=== PATIENT | female | born 1990 | race Caucasian/White ===

== ENCOUNTER 2019-01-22 19:51 | Inpatient (IN) | payer OTHER ==
[2019-01-22] MEDS ORDERED: Sodium Chloride 0.9% 10 ML Syringe FLUSH PRN (19:56)
[2019-01-22] MEDS ORDERED: Acetaminophen 325 MG Tab PO PRN (19:56)
[2019-01-22] MEDS ORDERED: Lactated Ringers 500 ML IV ONE (19:56)
[2019-01-22] MEDS ORDERED: Methylergonovine 0.2 MG/1 ML Amp IM PRN (19:56)
[2019-01-22] MEDS ORDERED: Misoprostol 400 MCG (4 X 100 MCG TAB) RECTAL PRN (19:56)
[2019-01-22] MEDS ORDERED: Carboprost Tromethamine 250 MCG/1 ML Amp IM PRN (19:56)
[2019-01-22] MEDS ORDERED: Tranexamic Acid 1,000 MG in Sodium Chloride 0.9% 100 ML IV PRN (19:56)
[2019-01-22] MEDS ORDERED: Lidocaine 1% 30 ML SDV INJECT PRN (19:56)
[2019-01-22] MEDS ORDERED: Oxytocin/Normal Saline 30 UNIT/500 ML BAG IV SCH (20:00)
[2019-01-22] MEDS: Lactated Ringers 1,000 ML IV SCH ×3 (20:15→22:58)
--- NOTE | 2019-01-22 20:17 | PCM.LDHP ---
<Lalita Jacome - Last Filed: 01/22/19 20:08> L&D History of Present Illness - General Date of Service: 01/22/19 Admit Problem/Dx: Patient Status Order with Admit Dx/Problem 01/22/19 19:56 Patient Status [ADT] Routine Admission Diagnosis/Problem Admission Diagnosis/Problem Rupture of membranes with clear amniotic fluid - History of Present Illness Introduction:: Nedra is a 28 yo female at 40w2d who presents to L&D for leakage of fluid. She had a large gush of fluid around 1915 this evening. She had been silvia for about an hour prior to that. They are now uncomfortable and about 5-10 minutes apart. Denies vaginal bleeding. Lost her mucus plug earlier today. She has been having headaches recently. She has had quite a bit of swelling recently as well. Baby is active. Expecting a boy. Desires intrathecal. - Related Data Allergies/Adverse Reactions: Allergies Allergy/AdvReac Type Severity Reaction Status Date / Time Penicillins Allergy Cannot Verified 01/22/19 20:04 Remember H&P Review of Systems - Review of Systems: Review Of Systems: See Below Review of Systems Comment:: ROS performed and negative except per HPI. L&D Exam - Exam Exam: See Below - Vital Signs Vital Signs: BP 153/76, P 80, remainder vitals pending. Weight: 92.986 kg - OB Specific Heart Tones: Present Heart Tones per Min: 125 (moderate variability, prolonged accels, no decels) - Exam General: Alert, Oriented Neck: Supple Lungs: Clear to Auscultation, Normal Respiratory Effort Cardiovascular: Regular Rate, Regular Rhythm, Normal S1, Normal S2 GI/Abdominal Exam: Normal Bowel Sounds, Soft, Non-Tender Genitourinary: Normal external exam, Cervical dilitation (4/90/-2) Extremities: Non-Tender, Pedal Edema (3+) Skin: Warm, Intact Psychiatric: Alert, Normal Mood - Problem List (1) SROM (spontaneous rupture of membranes) SNOMED Code(s): 609731580 ICD Code: FLP5090 - Status: Acute Current Visit: Yes (2) Normal labor SNOMED Code(s): 57738612 ICD Code: O80 - ENCOUNTER FOR FULL-TERM UNCOMPLICATED DELIVERY; Z37.9 - OUTCOME OF DELIVERY, UNSPECIFIED Status: Acute Current Visit: Yes (3) Elevated blood pressure affecting , antepartum SNOMED Code(s): 90411313, 831358903 ICD Code: O16.9 - UNSPECIFIED MATERNAL HYPERTENSION, UNSPECIFIED TRIMESTER Status: Acute Current Visit: Yes Problem List Initiated/Reviewed/Updated: Yes Orders Last 24hrs: Active Orders 24 hr Category Date Time Status Patient Status [ADT] Routine ADT 01/22/19 19:56 Ordered Communication Order [RC] ASDIRECTED Care 01/22/19 19:56 Ordered Heart Tones [RC] PER UNIT ROUTINE Care 01/22/19 19:56 Ordered Notify Provider Vital Signs OB [RC] ASDIRECTED Care 01/22/19 19:56 Ordered Notify Provider [RC] PRN Care 01/22/19 19:56 Ordered Pump Management, Intrathecal [RC] ASDIRECTED Care 01/22/19 19:58 Ordered Up ad Mitali [RC] ASDIRECTED Care 01/22/19 19:56 Ordered Vital Signs [RC] PER UNIT ROUTINE Care 01/22/19 19:56 Ordered CBC W/O DIFF,HEMOGRAM [HEME] Routine Lab 01/22/19 19:56 Ordered Acetaminophen [Tylenol] Med 01/22/19 19:56 Ordered 650 mg PO Q4H PRN Carboprost Tromethamine [Hemabate DS] Med 01/22/19 19:56 Ordered 250 mcg IM ASDIRECTED PRN Lactated Ringers @ 125 MLS/HR(1000ml) Med 01/22/19 20:00 Ordered Lactated Ringers [Ringers, Lactated] 1,000 ml IV ASDIRECTED Lactated Ringers [Ringers, Lactated] 500 ml Med 01/22/19 19:56 Ordered IV .BOLUS Lidocaine 1% [Xylocaine-MPF 1%] Med 01/22/19 19:56 Ordered 30 ml INJECT ASDIRECTED PRN Methylergonovine [Methergine] Med 01/22/19 19:56 Ordered 0.2 mg IM ASDIRECTED PRN Ondansetron [Zofran] Med 01/22/19 19:56 Ordered 4 mg IV Q4H PRN Oxytocin 30 Units in NS @ 2 MUNITS/MIN(500ml) Med 01/22/19 20:00 Ordered Oxytocin/Normal Saline [Pitocin in NS 30 UNIT/500 ML] 30 unit in 500 ml IV TITRATE Sodium Chloride 0.9% [Saline Flush] Med 01/22/19 19:56 Ordered 10 ml FLUSH ASDIRECTED PRN Tranexamic Acid [Cyklokapron] 1,000 mg Med 01/22/19 19:56 Ordered Sodium Chloride 0.9% [Normal Saline] 100 ml IV ONETIME miSOPROStol [Cytotec] Med 01/22/19 19:56 Ordered 800 mcg RECTAL ASDIRECTED PRN Saline Lock Insert [OM.PC] Routine Oth 01/22/19 19:56 Ordered Resuscitation Status Routine Resus Stat 01/22/19 19:56 Ordered Medication Orders Acetaminophen (Tylenol) 650 mg PO Q4H PRN PRN Reason: Pain (Mild 1-3) and fever Carboprost Tromethamine (Hemabate Ds) 250 mcg IM ASDIRECTED PRN PRN Reason: HEMORRHAGE Lactated Ringer's (Ringers, Lactated) 500 mls @ 999 mls/hr IV .BOLUS ONE Stop: 01/22/19 20:26 Lactated Ringer's (Ringers, Lactated) 1,000 mls @ 125 mls/hr IV ASDIRECTED CRISTY Oxytocin/Sodium Chloride (Pitocin In Ns 30 Unit/500 Ml) 30 unit in 500 mls @ 2 mls/hr IV TITRATE CRISTY; Protocol Tranexamic Acid 1,000 mg/ (Sodium Chloride) 110 mls @ 660 mls/hr IV ONETIME PRN PRN Reason: Bleeding Lidocaine HCl (Xylocaine-Mpf 1%) 30 ml INJECT ASDIRECTED PRN PRN Reason: Perineal Repair Methylergonovine Maleate (Methergine) 0.2 mg IM ASDIRECTED PRN PRN Reason: Hemorrhage Misoprostol (Cytotec) 800 mcg RECTAL ASDIRECTED PRN PRN Reason: Hemorrhage Ondansetron HCl (Zofran) 4 mg IV Q4H PRN PRN Reason: Nausea/Vomiting Sodium Chloride (Saline Flush) 10 ml FLUSH ASDIRECTED PRN PRN Reason: Keep Vein Open Assessment/Plan Comment:: Nedra is a 28 yo with normal labor and SROM. Elevated blood pressure on admission. Admit to L&D. Expectant management Intrathecal as desired. Pre-E labs drawn Anticipate vaginal delivery. Staffed with Dr. Wells. Lalita Jacome PGY3 <Josselin Wells - Last Filed: 01/23/19 03:43> L&D History of Present Illness - General Admit Problem/Dx: Patient Status Order with Admit Dx/Problem 01/22/19 19:56 Patient Status [ADT] Routine Admission Diagnosis/Problem Admission Diagnosis/Problem Rupture of membranes with clear amniotic fluid L&D Exam - Vital Signs Vital Signs: Last Vital Signs Temp 37.4 C 01/22/19 23:49 Pulse 67 01/23/19 02:33 Resp 16 01/23/19 02:33 BP 136/82 01/23/19 02:33 Pulse Ox 100 01/23/19 02:01 - Patient Data Lab Results Last 24 hrs: Laboratory Results - last 24 hr 01/22/19 01/22/19 01/22/19 Range/Units 20:15 20:15 21:55 WBC 16.1 H (5.0-10.0) 10^3/uL RBC 4.16 L (4.2-5.4) 10^6/uL Hgb 13.1 (12.0-16.0) g/dL Hct 38.6 (37.0-47.0) % MCV 92.8 (80-100) fL MCH 31.5 (27.0-34.0) pg MCHC 33.9 (33.0-35.0) g/dL Plt Count 240 (150-450) 10^3/uL BUN 18 (7-18) mg/dL Creatinine 0.9 (0.6-1.3) mg/dL Est Cr Clr Drug Dosing 84.49 mL/min Estimated GFR (MDRD) > 60 Uric Acid 8.0 H (2.6-7.2) mg/dL AST 26 (10-42) IU/L ALT 14 (10-60) IU/L Lactate Dehydrogenase 153 (91-180) IU/L Urine Color Yellow (YELLOW) Urine Appearance Cloudy (CLEAR) Urine pH 6.0 (5.0-9.0) Ur Specific [place] 1.020 (1.005-1.030) Urine Protein Negative (NEGATIVE) Urine Glucose (UA) Negative (NEGATIVE) Urine Ketones Negative (NEGATIVE) Urine Occult Blood Large H (NEGATIVE) Urine Nitrite Negative (NEGATIVE) Urine Bilirubin Negative (NEGATIVE) Urine Urobilinogen 0.2 (0.2-1.0) mg/dL Ur Leukocyte Esterase Negative (NEGATIVE) Ur Random Creatinine mg/dL U Random Total Protein (0.00-9.9) mg/dL Protein/Creatinin Ratio 01/22/19 Range/Units 21:55 WBC (5.0-10.0) 10^3/uL RBC (4.2-5.4) 10^6/uL Hgb (12.0-16.0) g/dL Hct (37.0-47.0) % MCV (80-100) fL MCH (27.0-34.0) pg MCHC (33.0-35.0) g/dL Plt Count (150-450) 10^3/uL BUN (7-18) mg/dL Creatinine (0.6-1.3) mg/dL Est Cr Clr Drug Dosing mL/min Estimated GFR (MDRD) Uric Acid (2.6-7.2) mg/dL AST (10-42) IU/L ALT (10-60) IU/L Lactate Dehydrogenase (91-180) IU/L Urine Color (YELLOW) Urine Appearance (CLEAR) Urine pH (5.0-9.0) Ur Specific [place] (1.005-1.030) Urine Protein (NEGATIVE) Urine Glucose (UA) (NEGATIVE) Urine Ketones (NEGATIVE) Urine Occult Blood (NEGATIVE) Urine Nitrite (NEGATIVE) Urine Bilirubin (NEGATIVE) Urine Urobilinogen (0.2-1.0) mg/dL Ur Leukocyte Esterase (NEGATIVE) Ur Random Creatinine 112 mg/dL U Random Total Protein 24 H (0.00-9.9) mg/dL Protein/Creatinin Ratio 0.21 Result Diagrams: 01/22/19 20:15 01/22/19 20:15 Orders Last 24hrs: Active Orders 24 hr Category Date Time Status Patient Status [ADT] Routine ADT 01/22/19 19:56 Active Communication Order [RC] ASDIRECTED Care 01/22/19 19:56 Active Non Stress Test [RC] PER UNIT ROUTINE Care 01/23/19 03:21 Active Notify Provider Vital Signs OB [RC] ASDIRECTED Care 01/22/19 19:56 Active Notify Provider [RC] PRN Care 01/22/19 19:56 Active POC Labs [RC] ASDIRECTED Care 01/23/19 03:21 Active Procedure Site Prep Instruct [RC] ASDIRECTED Care 01/23/19 03:21 Active Pump Management, Intrathecal [RC] ASDIRECTED Care 01/22/19 19:58 Active RT Incentive Spirometry [RC] ASDIRECTED Care 01/23/19 03:21 Active Up ad Mitali [RC] ASDIRECTED Care 01/22/19 19:56 Active Vital Signs [RC] 08,20 Care 01/22/19 19:56 Active Vital Signs [RC] PER UNIT ROUTINE Care 01/23/19 03:21 Active Nothing Per Oral Diet [DIET] Diet 01/23/19 Breakfast Active Nothing Per Oral Diet [DIET] Diet 01/23/19 Dinner Active Nothing Per Oral Diet [DIET] Diet 01/23/19 Lunch Active TYPE AND SCREEN [BBK] Routine Lab 01/23/19 03:21 Received Acetaminophen [Tylenol] Med 01/22/19 19:56 Active 650 mg PO Q4H PRN Carboprost Tromethamine [Hemabate DS] Med 01/22/19 19:56 Active 250 mcg IM ASDIRECTED PRN Lactated Ringers [Ringers, Lactated] 1,000 ml Med 01/22/19 20:00 Active IV ASDIRECTED Lidocaine 1% [Xylocaine-MPF 1%] Med 01/22/19 19:56 Active 30 ml INJECT ASDIRECTED PRN Methylergonovine [Methergine] Med 01/22/19 19:56 Active 0.2 mg IM ASDIRECTED PRN Ondansetron [Zofran] Med 01/22/19 19:56 Active 4 mg IV Q4H PRN Oxytocin/Normal Saline [Pitocin in NS 30 UNIT/500 ML] Med 01/22/19 20:00 Active 30 unit in 500 ml IV TITRATE Oxytocin/Normal Saline [Pitocin in NS 30 UNIT/500 ML] Med 01/23/19 01:55 Active 30 unit in 500 ml IV TITRATE Sodium Chloride 0.9% [Saline Flush] Med 01/22/19 19:56 Active 10 ml FLUSH ASDIRECTED PRN Tranexamic Acid [Cyklokapron] 1,000 mg Med 01/22/19 19:56 Active Sodium Chloride 0.9% [Normal Saline] 100 ml IV ONETIME ceFAZolin [Ancef] 2 gm Med 01/23/19 03:20 Active Premix Bag 1 bag IV ONETIME miSOPROStol [Cytotec] Med 01/22/19 19:56 Active 800 mcg RECTAL ASDIRECTED PRN Saline Lock Insert [OM.PC] Routine Oth 01/22/19 19:56 Ordered Schedule Procedure [COMM] Per Unit Routine Oth 01/23/19 03:21 Ordered Resuscitation Status Routine Resus Stat 01/22/19 19:56 Ordered Medication Orders Acetaminophen (Tylenol) 650 mg PO Q4H PRN PRN Reason: Pain (Mild 1-3) and fever Carboprost Tromethamine (Hemabate Ds) 250 mcg IM ASDIRECTED PRN PRN Reason: HEMORRHAGE Lactated Ringer's (Ringers, Lactated) 1,000 mls @ 125 mls/hr IV ASDIRECTED CRISTY Last Admin: 01/23/19 01:15 Dose: 125 mls/hr Infusion: 01/23/19 00:09 Dose: 125 mls/hr Admin: 01/22/19 22:58 Dose: 125 mls/hr Infusion: 01/22/19 22:58 Dose: 125 mls/hr Admin: 01/22/19 21:00 Dose: 125 mls/hr Infusion: 01/22/19 21:00 Dose: 125 mls/hr Admin: 01/22/19 20:15 Dose: 125 mls/hr Oxytocin/Sodium Chloride (Pitocin In Ns 30 Unit/500 Ml) 30 unit in 500 mls @ 2 mls/hr IV TITRATE CRISTY; Protocol Last Titration: 01/23/19 02:49 Dose: 4 mls/hr Titration: 01/23/19 02:32 Dose: 3 mls/hr Titration: 01/23/19 02:15 Dose: 2 mls/hr Admin: 01/23/19 01:54 Dose: 1 munits/min, 1 mls/hr Tranexamic Acid 1,000 mg/ (Sodium Chloride) 110 mls @ 660 mls/hr IV ONETIME PRN PRN Reason: Bleeding Oxytocin/Sodium Chloride (Pitocin In Ns 30 Unit/500 Ml) 30 unit in 500 mls @ 2 mls/hr IV TITRATE CRISTY; Protocol Cefazolin Sodium/Dextrose 2 gm (/ Premix) 50 mls @ 100 mls/hr IV ONETIME ONE Stop: 01/23/19 03:49 Lidocaine HCl (Xylocaine-Mpf 1%) 30 ml INJECT ASDIRECTED PRN PRN Reason: Perineal Repair Methylergonovine Maleate (Methergine) 0.2 mg IM ASDIRECTED PRN PRN Reason: Hemorrhage Misoprostol (Cytotec) 800 mcg RECTAL ASDIRECTED PRN PRN Reason: Hemorrhage Ondansetron HCl (Zofran) 4 mg IV Q4H PRN PRN Reason: Nausea/Vomiting Last Admin: 01/23/19 00:20 Dose: 4 mg Admin: 01/22/19 20:28 Dose: 4 mg Sodium Chloride (Saline Flush) 10 ml FLUSH ASDIRECTED PRN PRN Reason: Keep Vein Open Last Admin: 01/22/19 20:35 Dose: 10 ml Assessment/Plan Comment:: Agree with resident assessment and plan. Labs and BP are consistent with mild preeclampsia. Will monitor closely. If BP >160/100, will start magnesium. Josselin Wells MD
[2019-01-22] MEDS: Ondansetron 4 MG/2 ML SDV IV PRN (20:28)
[2019-01-22] MEDS ORDERED: fentaNYL 100 MCG/2 ML SDV ONE (20:34)
[2019-01-22] MEDS ORDERED: EPINEPHrine 1 MG/ML SDV ONE (20:35)
[2019-01-22] MEDS ORDERED: Sodium Bicarbonate 4.2% 2.5 MEQ/5 ML SDV ONE (20:35)
--- NOTE | 2019-01-22 21:02 | PCM.SN ---
- Free Text/Narrative Note: Intrathecal. Sitting position, sterile prep and drape. 1% lidocaine w bicarb for skinwheal to L2 L3 interspace, introducer, 24 ga pencan x 1. Pos CSF, neg heme, neg parasthesia. 0.1 ml pf 1:1000 epi, 20 mcg pf sufenta, 30 mcg pf fentanyl, 0.4 ml pf ns and 6 mg of 0.75 % pf bupivacaine injected after CSF aspiration. Pt to L lateral position. Procedure time 2039 to 2009
[2019-01-23] MEDS: Ondansetron 4 MG/2 ML SDV IV PRN (00:20)
[2019-01-23] MEDS ORDERED: EPINEPHrine 1 MG/ML SDV ONE (00:28)
[2019-01-23] MEDS ORDERED: fentaNYL 100 MCG/2 ML SDV ONE (00:28)
[2019-01-23] MEDS ORDERED: Sodium Bicarbonate 4.2% 2.5 MEQ/5 ML SDV ONE (00:29)
--- NOTE | 2019-01-23 00:49 | PCM.SN ---
- Free Text/Narrative Note: Intrathecal. Sitting position, sterile prep and drape. 1% lidocaine w bicarb for skinwheal to L2 L3 interspace, introducer, 24 ga pencan x 1. Pos CSF, neg heme, neg parasthesia. 0.1 ml pf 1:1000 epi, 20 mcg pf sufenta, 30 mcg pf fentanyl, 0.4 ml pf ns and 6 mg of 0.75 % pf bupivacaine injected after CSF aspiration. Pt to L lateral position. Procedure time 0030 to 0100
--- NOTE | 2019-01-23 00:57 | PCM.SN ---
- Free Text/Narrative Note: Labor progress note 01/23/2019 0051 More comfortable with second intrathecal. Denies headache. BP 140/73, P73, O2 100%, NAD FHT category 1 Last cervical check about 40 min ago was 8/100/0 Urine PcR 0.21 UA with large amt blood. A/P 28 yo at 40 3/7 weeks in active labor. Pre-ecclampsia without severe features. Continue current cares. Anticipate vaginal delivery. Lalita Jacome, PGY3
[2019-01-23] MEDS: Lactated Ringers 1,000 ML IV SCH (01:15)
[2019-01-23] MEDS ORDERED: Oxytocin/Normal Saline 30 UNIT/500 ML BAG IV SCH ×3 (01:55→02:00)
--- NOTE | 2019-01-23 02:20 | PCM.SN ---
- Free Text/Narrative Note: Labor progress note 01/23/2019 0211 Still comfortable with second intrathecal. A little nauseous. No other concerns. BP 140/83, P63, O2 100% Cervix 8/100/0, unchanged from 2 hours prior. FHT category 1 28 yo in normal labor with SROM. Pre-ecclampsia. Start pitocin now Continue other cares. Anticipate vaginal delivery. Lalita Jacome, PGY3
[2019-01-23] MEDS ORDERED: ceFAZolin 2 GM in Premix Bag 1 BAG IV ONE (03:20)
[2019-01-23] MEDS ORDERED: Citric Acid/Sodium Citrate Solution 30 ML Cup PO ONE (03:20)
[2019-01-23] MEDS ORDERED: Oxytocin/Normal Saline 60 UNIT/1,000 ML BAG ONE (03:29)
--- NOTE | 2019-01-23 03:41 | PCM.SN ---
- Free Text/Narrative Note: 01/23/19 Called to L&D after FHT decreased into the 80s-90s for 9 minutes. Cervix has been 8 cm since midnight despite adequate contractions. Upon my arrival, FHT had recovered to 130s with minimal variability. Due to intolerance of labor and prolonged 1st stage of labor, the decision was made to proceed with section. Risks of procedure were reviewed with the patient, and consent was signed. Will attempt spinal anesthesia. Josselin Wells MD
[2019-01-23] MEDS ORDERED: Sodium Chloride 0.9% 50 ML ONE (04:31)
--- NOTE | 2019-01-23 05:06 | PCM.DEL ---
<Lalita Jacome - Last Filed: 01/23/19 05:32> L & D Note - General Info Date of Service: 01/23/19 - Delivery Note Labor: Spontaneous Delivery Method: Emergent Delivery Mode: Manual Presentation: Vertex Nuchal Cord: None Anesthesia Type: Spinal Amniotic Fluid Description: Meconium Stained Episiotomy Type: None Laceration: None Placenta: Intact, Manual Removal Cord: 3 Vessels Estimated Blood Loss: 1,500 Resuscitation Needed: No Score 1 min: 8 Score 5 min: 8 Delivery Comments (Free Text/Narrative):: See operative note per Dr. Wells. - General Info Date of Service: 01/23/19 - Patient Data Vitals - Most Recent: Last Vital Signs Temp 99.3 F 01/22/19 23:49 Pulse 75 01/23/19 03:02 Resp 16 01/23/19 02:33 BP 148/81 H 01/23/19 03:02 Pulse Ox 100 01/23/19 02:01 Weight - Most Recent: 92.986 kg I&O - Last 24 Hours: Intake & Output 01/22/19 01/22/19 01/23/19 14:59 22:59 06:59 Intake Total 1999 1060 Balance 1999 1060 Lab Results Last 24 Hours: Laboratory Results - last 24 hr 01/22/19 01/22/19 01/22/19 Range/Units 20:15 20:15 20:15 WBC 16.1 H (5.0-10.0) 10^3/uL RBC 4.16 L (4.2-5.4) 10^6/uL Hgb 13.1 (12.0-16.0) g/dL Hct 38.6 (37.0-47.0) % MCV 92.8 (80-100) fL MCH 31.5 (27.0-34.0) pg MCHC 33.9 (33.0-35.0) g/dL Plt Count 240 (150-450) 10^3/uL BUN 18 (7-18) mg/dL Creatinine 0.9 (0.6-1.3) mg/dL Est Cr Clr Drug Dosing 84.49 mL/min Estimated GFR (MDRD) > 60 Uric Acid 8.0 H (2.6-7.2) mg/dL AST 26 (10-42) IU/L ALT 14 (10-60) IU/L Lactate Dehydrogenase 153 (91-180) IU/L Urine Color (YELLOW) Urine Appearance (CLEAR) Urine pH (5.0-9.0) Ur Specific [place] (1.005-1.030) Urine Protein (NEGATIVE) Urine Glucose (UA) (NEGATIVE) Urine Ketones (NEGATIVE) Urine Occult Blood (NEGATIVE) Urine Nitrite (NEGATIVE) Urine Bilirubin (NEGATIVE) Urine Urobilinogen (0.2-1.0) mg/dL Ur Leukocyte Esterase (NEGATIVE) Ur Random Creatinine mg/dL U Random Total Protein (0.00-9.9) mg/dL Protein/Creatinin Ratio Blood Type A POSITIVE Gel Antibody Screen Negative 01/22/19 01/22/19 Range/Units 21:55 21:55 WBC (5.0-10.0) 10^3/uL RBC (4.2-5.4) 10^6/uL Hgb (12.0-16.0) g/dL Hct (37.0-47.0) % MCV (80-100) fL MCH (27.0-34.0) pg MCHC (33.0-35.0) g/dL Plt Count (150-450) 10^3/uL BUN (7-18) mg/dL Creatinine (0.6-1.3) mg/dL Est Cr Clr Drug Dosing mL/min Estimated GFR (MDRD) Uric Acid (2.6-7.2) mg/dL AST (10-42) IU/L ALT (10-60) IU/L Lactate Dehydrogenase (91-180) IU/L Urine Color Yellow (YELLOW) Urine Appearance Cloudy (CLEAR) Urine pH 6.0 (5.0-9.0) Ur Specific [place] 1.020 (1.005-1.030) Urine Protein Negative (NEGATIVE) Urine Glucose (UA) Negative (NEGATIVE) Urine Ketones Negative (NEGATIVE) Urine Occult Blood Large H (NEGATIVE) Urine Nitrite Negative (NEGATIVE) Urine Bilirubin Negative (NEGATIVE) Urine Urobilinogen 0.2 (0.2-1.0) mg/dL Ur Leukocyte Esterase Negative (NEGATIVE) Ur Random Creatinine 112 mg/dL U Random Total Protein 24 H (0.00-9.9) mg/dL Protein/Creatinin Ratio 0.21 Blood Type Gel Antibody Screen Med Orders - Current: Current Medications Acetaminophen (Tylenol) 650 mg PO Q4H PRN PRN Reason: Pain (Mild 1-3) and fever Carboprost Tromethamine (Hemabate Ds) 250 mcg IM ASDIRECTED PRN PRN Reason: HEMORRHAGE Lactated Ringer's (Ringers, Lactated) 1,000 mls @ 125 mls/hr IV ASDIRECTED CRISTY Last Admin: 01/23/19 01:15 Dose: 125 mls/hr Oxytocin/Sodium Chloride (Pitocin In Ns 30 Unit/500 Ml) 30 unit in 500 mls @ 2 mls/hr IV TITRATE CRISTY; Protocol Last Titration: 01/23/19 03:02 Dose: 0 mls/hr Tranexamic Acid 1,000 mg/ (Sodium Chloride) 110 mls @ 660 mls/hr IV ONETIME PRN PRN Reason: Bleeding Oxytocin/Sodium Chloride (Pitocin In Ns 30 Unit/500 Ml) 30 unit in 500 mls @ 2 mls/hr IV TITRATE CRISTY; Protocol Lidocaine HCl (Xylocaine-Mpf 1%) 30 ml INJECT ASDIRECTED PRN PRN Reason: Perineal Repair Methylergonovine Maleate (Methergine) 0.2 mg IM ASDIRECTED PRN PRN Reason: Hemorrhage Misoprostol (Cytotec) 800 mcg RECTAL ASDIRECTED PRN PRN Reason: Hemorrhage Ondansetron HCl (Zofran) 4 mg IV Q4H PRN PRN Reason: Nausea/Vomiting Last Admin: 01/23/19 00:20 Dose: 4 mg Sodium Chloride (Saline Flush) 10 ml FLUSH ASDIRECTED PRN PRN Reason: Keep Vein Open Last Admin: 01/22/19 20:35 Dose: 10 ml Discontinued Medications Citric Acid/Sodium Citrate (Bicitra Solution) 30 ml PO ONETIME ONE Stop: 01/23/19 03:21 Last Admin: 01/23/19 03:41 Dose: 30 ml Epinephrine HCl (Adrenalin) Confirm Administered Dose 1 mg .ROUTE .STK-MED ONE Stop: 01/22/19 20:36 Last Admin: 01/22/19 23:13 Dose: Not Given Epinephrine HCl (Adrenalin) Confirm Administered Dose 1 mg .ROUTE .STK-MED ONE Stop: 01/23/19 00:29 Last Admin: 01/23/19 01:25 Dose: Not Given Fentanyl (Sublimaze) Confirm Administered Dose 100 mcg .ROUTE .STK-MED ONE Stop: 01/22/19 20:35 Last Admin: 01/22/19 23:12 Dose: Not Given Fentanyl (Sublimaze) Confirm Administered Dose 100 mcg .ROUTE .STK-MED ONE Stop: 01/23/19 00:29 Last Admin: 01/23/19 01:25 Dose: Not Given Lactated Ringer's (Ringers, Lactated) 500 mls @ 999 mls/hr IV .BOLUS ONE Stop: 01/22/19 20:26 Oxytocin/Sodium Chloride (Pitocin In Ns 30 Unit/500 Ml) 30 unit in 500 mls @ 1 mls/hr IV TITRATE CRISTY; Protocol Oxytocin/Sodium Chloride (Pitocin In Ns 30 Unit/500 Ml) 30 unit in 500 mls @ 1 mls/hr IV TITRATE CRISTY; Protocol Cefazolin Sodium/Dextrose 2 gm (/ Premix) 50 mls @ 100 mls/hr IV ONETIME ONE Stop: 01/23/19 03:49 Last Admin: 01/23/19 03:55 Dose: 100 mls/hr Oxytocin/Sodium Chloride (Pitocin In Ns 30 Unit/500 Ml) Confirm Administered Dose 60 unit in 1,000 mls @ as directed .ROUTE .STK-MED ONE Stop: 01/23/19 03:30 Sodium Chloride (Normal Saline) Confirm Administered Dose 50 mls @ as directed .ROUTE .STK-MED ONE Stop: 01/23/19 04:32 Sodium Bicarbonate (Sodium Bicarbonate 4.2%) Confirm Administered Dose 0.5 meq .ROUTE .STK-MED ONE Stop: 01/22/19 20:36 Last Admin: 01/22/19 23:13 Dose: Not Given Sodium Bicarbonate (Sodium Bicarbonate 4.2%) Confirm Administered Dose 0.5 meq .ROUTE .STK-MED ONE Stop: 01/23/19 00:30 Last Admin: 01/23/19 01:25 Dose: Not Given Sufentanil Citrate (Sufenta) Confirm Administered Dose 50 mcg .ROUTE .STK-MED ONE Stop: 01/22/19 20:36 Last Admin: 01/22/19 23:13 Dose: Not Given Sufentanil Citrate (Sufenta) Confirm Administered Dose 50 mcg .ROUTE .STK-MED ONE Stop: 01/23/19 00:30 Last Admin: 01/23/19 01:25 Dose: Not Given - Problem List & Annotations (1) SROM (spontaneous rupture of membranes) SNOMED Code(s): 769021551 Code(s): QSA8672 - Status: Resolved Current Visit: Yes (2) Normal labor SNOMED Code(s): 08687413 Code(s): O80 - ENCOUNTER FOR FULL-TERM UNCOMPLICATED DELIVERY; Z37.9 - OUTCOME OF DELIVERY, UNSPECIFIED Status: Resolved Current Visit: Yes (3) Pre-eclampsia SNOMED Code(s): 689839321 Code(s): O14.90 - UNSPECIFIED PRE-ECLAMPSIA, UNSPECIFIED TRIMESTER Status: Acute Current Visit: Yes (4) delivery delivered SNOMED Code(s): 492781093 Code(s): O82 - ENCOUNTER FOR DELIVERY WITHOUT INDICATION Status: Acute Current Visit: Yes - Problem List Review Problem List Initiated/Reviewed/Updated: Yes - My Orders Last 24 Hours: My Active Orders 01/22/19 19:56 Patient Status [ADT] Routine Communication Order [RC] ASDIRECTED Notify Provider Vital Signs OB [RC] ASDIRECTED Notify Provider [RC] PRN Up ad Mitali [RC] ASDIRECTED Vital Signs [RC] 08,20 Acetaminophen [Tylenol] 650 mg PO Q4H PRN Carboprost Tromethamine [Hemabate DS] 250 mcg IM ASDIRECTED PRN Lidocaine 1% [Xylocaine-MPF 1%] 30 ml INJECT ASDIRECTED PRN Methylergonovine [Methergine] 0.2 mg IM ASDIRECTED PRN Ondansetron [Zofran] 4 mg IV Q4H PRN Sodium Chloride 0.9% [Saline Flush] 10 ml FLUSH ASDIRECTED PRN Tranexamic Acid [Cyklokapron] 1,000 mg Sodium Chloride 0.9% [Normal Saline] 100 ml IV ONETIME miSOPROStol [Cytotec] 800 mcg RECTAL ASDIRECTED PRN Saline Lock Insert [OM.PC] Routine Resuscitation Status Routine 01/22/19 19:58 Pump Management, Intrathecal [RC] ASDIRECTED 01/22/19 20:00 Lactated Ringers [Ringers, Lactated] 1,000 ml IV ASDIRECTED Oxytocin/Normal Saline [Pitocin in NS 30 UNIT/500 ML] 30 unit in 500 ml IV TITRATE - Assessment Assessment:: 28 yo G1 now P1 female s/p primary LTCS at 40 3/7 weeks for arrest of dilation and intolerance. Pre-ecclampsia without severe features EBL 1500 - Plan Plan:: Continue post operative cares. Monitor for signs of anemia. Monitor BPs and UOP closely- will start Mg if they get into severe range. Staffed with Dr. Russell Jacome, PGY3 <Josselin Wells - Last Filed: 01/25/19 14:22> - Patient Data Vitals - Most Recent: Last Vital Signs Temp 36.7 C 01/25/19 08:00 Pulse 79 01/25/19 08:00 Resp 16 01/25/19 08:00 BP 131/75 01/25/19 08:00 Pulse Ox 96 01/25/19 04:00 I&O - Last 24 Hours: Intake & Output 01/24/19 01/25/19 01/25/19 22:59 06:59 14:59 Intake Total 360 Balance 360 Med Orders - Current: Current Medications Acetaminophen (Tylenol) 650 mg PO Q4H PRN PRN Reason: Pain (Mild 1-3) and fever Carboprost Tromethamine (Hemabate Ds) 250 mcg IM ASDIRECTED PRN PRN Reason: HEMORRHAGE Diphenhydramine HCl (Benadryl) 25 mg IVPUSH Q6H PRN PRN Reason: Itching or Nausea Docusate Sodium (Colace) 100 mg PO Q12H PRN PRN Reason: Constipation Last Admin: 01/25/19 08:20 Dose: 100 mg Ferrous Sulfate (Ferrous Sulfate) 325 mg PO DAILY CRISTY Last Admin: 01/25/19 08:20 Dose: 325 mg Oxytocin/Sodium Chloride (Pitocin In Ns 30 Unit/500 Ml) 30 unit in 500 mls @ 2 mls/hr IV TITRATE CRISTY; Protocol Last Titration: 01/23/19 03:02 Dose: 0 mls/hr Oxytocin/Sodium Chloride (Pitocin In Ns 30 Unit/500 Ml) 30 unit in 500 mls @ 2 mls/hr IV TITRATE CRISTY; Protocol Last Titration: 01/23/19 08:30 Dose: 0 mls/hr Tranexamic Acid 1,000 mg/ (Sodium Chloride) 110 mls @ 660 mls/hr IV ONETIME PRN PRN Reason: Bleeding Lactated Ringer's (Ringers, Lactated) 1,000 mls @ 125 mls/hr IV ASDIRECTED [facility] Last Admin: 01/23/19 08:30 Dose: 125 mls/hr Ibuprofen (Motrin) 800 mg PO Q8H PRN PRN Reason: mild pain or fever Last Admin: 01/25/19 12:58 Dose: 800 mg Lidocaine HCl (Xylocaine-Mpf 1%) 30 ml INJECT ASDIRECTED PRN PRN Reason: Perineal Repair Methylergonovine Maleate (Methergine) 0.2 mg IM ASDIRECTED PRN PRN Reason: Hemorrhage Misoprostol (Cytotec) 800 mcg RECTAL ASDIRECTED PRN PRN Reason: Excessive bleeding Naloxone HCl (Narcan) 0.1 mg IVPUSH SEECOMMENT PRN PRN Reason: Respiratory Depression Ondansetron HCl (Zofran) 4 mg IV Q4H PRN PRN Reason: Nausea/Vomiting Oxycodone/Acetaminophen (Percocet 325-5 Mg) 1 tab PO Q4H PRN PRN Reason: Pain (moderate 4-6) Last Admin: 01/24/19 05:35 Dose: 1 tab Oxycodone/Acetaminophen (Percocet 325-5 Mg) 2 tab PO Q4H PRN PRN Reason: Pain (moderate 4-6) Last Admin: 01/25/19 12:58 Dose: 2 tab Prenat Multivit/Golovin/Iron/Folic Ac ( Plus Iron) 1 each PO DAILY [facility] Last Admin: 01/25/19 08:21 Dose: 1 each Simethicone (Simethicone) 160 mg PO QID [facility] Last Admin: 01/25/19 12:57 Dose: 160 mg Sodium Chloride (Saline Flush) 10 ml FLUSH ASDIRECTED PRN PRN Reason: Keep Vein Open Last Admin: 01/22/19 20:35 Dose: 10 ml Discontinued Medications Carboprost Tromethamine (Hemabate Ds) 250 mcg IM ONETIME ONE Stop: 01/23/19 05:08 Last Admin: 01/23/19 09:07 Dose: Not Given Citric Acid/Sodium Citrate (Bicitra Solution) 30 ml PO ONETIME ONE Stop: 01/23/19 03:21 Last Admin: 01/23/19 03:41 Dose: 30 ml Dexamethasone (Dexamethasone) 8 mg IV .STK-MED ONE Stop: 01/25/19 12:07 Ephedrine Sulfate (Ephedrine Sulfate) 20 mg IV .STK-MED ONE Stop: 01/25/19 12:07 Epinephrine HCl (Adrenalin) Confirm Administered Dose 1 mg .ROUTE .STK-MED ONE Stop: 01/22/19 20:36 Last Admin: 01/22/19 23:13 Dose: Not Given Epinephrine HCl (Adrenalin) Confirm Administered Dose 1 mg .ROUTE .STK-MED ONE Stop: 01/23/19 00:29 Last Admin: 01/23/19 01:25 Dose: Not Given Epinephrine HCl (Adrenalin) 0.1 mg .XX .STK-MED ONE Stop: 01/25/19 12:19 Fentanyl (Sublimaze) Confirm Administered Dose 100 mcg .ROUTE .STK-MED ONE Stop: 01/22/19 20:35 Last Admin: 01/22/19 23:12 Dose: Not Given Fentanyl (Sublimaze) Confirm Administered Dose 100 mcg .ROUTE .STK-MED ONE Stop: 01/23/19 00:29 Last Admin: 01/23/19 01:25 Dose: Not Given Fentanyl (Sublimaze) 30 mcg ITHECAL .STK-MED ONE Stop: 01/25/19 12:18 Lactated Ringer's (Ringers, Lactated) 500 mls @ 999 mls/hr IV .BOLUS ONE Stop: 01/22/19 20:26 Last Admin: 01/23/19 09:06 Dose: Not Given Lactated Ringer's (Ringers, Lactated) 1,000 mls @ 125 mls/hr IV ASDIRECTED CRISTY Last Admin: 01/23/19 01:15 Dose: 125 mls/hr Tranexamic Acid 1,000 mg/ (Sodium Chloride) 110 mls @ 660 mls/hr IV ONETIME PRN PRN Reason: Bleeding Oxytocin/Sodium Chloride (Pitocin In Ns 30 Unit/500 Ml) 30 unit in 500 mls @ 1 mls/hr IV TITRATE CRISTY; Protocol Oxytocin/Sodium Chloride (Pitocin In Ns 30 Unit/500 Ml) 30 unit in 500 mls @ 1 mls/hr IV TITRATE CRISTY; Protocol Cefazolin Sodium/Dextrose 2 gm (/ Premix) 50 mls @ 100 mls/hr IV ONETIME ONE Stop: 01/23/19 03:49 Last Admin: 01/23/19 03:55 Dose: 100 mls/hr Oxytocin/Sodium Chloride (Pitocin In Ns 30 Unit/500 Ml) Confirm Administered Dose 60 unit in 1,000 mls @ as directed .ROUTE .STK-MED ONE Stop: 01/23/19 03:30 Sodium Chloride (Normal Saline) Confirm Administered Dose 50 mls @ as directed .ROUTE .STK-MED ONE Stop: 01/23/19 04:32 Oxytocin/Sodium Chloride (Pitocin In Ns 30 Unit/500 Ml) 30 unit in 500 mls @ as directed IV .STK-MED ONE Stop: 01/24/19 12:09 Lactated Ringer's (Ringers, Lactated) 1,000 mls @ as directed IV .STK-MED ONE Stop: 01/25/19 12:07 Ketorolac Tromethamine (Toradol) 15 mg IVPUSH Q6H CRISTY Stop: 01/23/19 23:01 Last Admin: 01/23/19 23:15 Dose: 15 mg Ketorolac Tromethamine (Toradol) 30 mg IVPUSH .STK-MED ONE Stop: 01/25/19 12:07 Misoprostol (Cytotec) 800 mcg RECTAL ASDIRECTED PRN PRN Reason: Hemorrhage Morphine Sulfate (Duramorph Pf) 0.2 mg .XX .STK-MED ONE Stop: 01/25/19 12:07 Ondansetron HCl (Zofran) 4 mg IV Q4H PRN PRN Reason: Nausea/Vomiting Last Admin: 01/23/19 00:20 Dose: 4 mg Promethazine HCl (Phenergan) 12.5 mg .XX .STK-MED ONE Stop: 01/25/19 12:07 Sodium Bicarbonate (Sodium Bicarbonate 4.2%) Confirm Administered Dose 0.5 meq .ROUTE .STK-MED ONE Stop: 01/22/19 20:36 Last Admin: 01/22/19 23:13 Dose: Not Given Sodium Bicarbonate (Sodium Bicarbonate 4.2%) Confirm Administered Dose 0.5 meq .ROUTE .STK-MED ONE Stop: 01/23/19 00:30 Last Admin: 01/23/19 01:25 Dose: Not Given Sodium Bicarbonate (Sodium Bicarbonate 4.2%) 0.5 meq IV .STK-MED ONE Stop: 01/25/19 12:07 Sodium Bicarbonate (Sodium Bicarbonate 4.2%) 0.5 meq .XX .STK-MED ONE Stop: 01/25/19 12:19 Sufentanil Citrate (Sufenta) Confirm Administered Dose 50 mcg .ROUTE .STK-MED ONE Stop: 01/22/19 20:36 Last Admin: 01/22/19 23:13 Dose: Not Given Sufentanil Citrate (Sufenta) Confirm Administered Dose 50 mcg .ROUTE .STK-MED ONE Stop: 01/23/19 00:30 Last Admin: 01/23/19 01:25 Dose: Not Given Sufentanil Citrate (Sufenta) 20 mcg ITHECAL .STK-MED ONE Stop: 01/25/19 12:18 - Plan Plan:: Agree with resident assessment and plan. Please see operative report for details. Josselin Wells MD
[2019-01-23] MEDS ORDERED: Ondansetron 4 MG/2 ML SDV IV PRN (05:07)
[2019-01-23] MEDS ORDERED: diphenhydrAMINE 50 MG/ML SDV IVPUSH PRN (05:07)
[2019-01-23] MEDS ORDERED: Acetaminophen/oxyCODONE 325-5 MG Tab PO PRN (05:07)
[2019-01-23] MEDS ORDERED: Carboprost Tromethamine 250 MCG/1 ML Amp IM ONE (05:07)
[2019-01-23] MEDS ORDERED: Naloxone 2 MG/2 ML Syringe IVPUSH PRN (05:07)
[2019-01-23] MEDS ORDERED: Misoprostol 400 MCG (4 X 100 MCG TAB) RECTAL PRN (05:07)
[2019-01-23] MEDS ORDERED: Acetaminophen 325 MG Tab PO PRN (05:07)
[2019-01-23] MEDS ORDERED: Tranexamic Acid 1,000 MG in Sodium Chloride 0.9% 100 ML IV PRN (05:07)
[2019-01-23] MEDS ORDERED: Lactated Ringers 1,000 ML IV SCH (05:15)
[2019-01-23] MEDS: Docusate Sodium 100 MG Cap PO PRN ×2 (08:30→23:15)
[2019-01-23] MEDS: Simethicone 80 MG Tab.Chew PO SCH ×4 (08:30→23:15)
[2019-01-23] MEDS: Ketorolac 30 MG/ML SDV IVPUSH SCH ×3 (10:56→23:15)
[2019-01-23] MEDS: Prenatal Multivitamin with Calcium/Folic Acid/Iron Tab PO SCH (15:44)
--- NOTE | 2019-01-23 17:38 | PCM.PRNOTE ---
- Free Text/Narrative Note: Section Operative Report Date of Surgery: 01/23/2019 Surgeon: Josselin Wells MD Lead Technical Writer: MD Lalita Peralta MD, PGY3 Pre-Operative Diagnosis: at 40w3d gestation Pre-eclampsia without severe features intolerance of labor Prolonged first stage of labor Post-Operative Diagnosis: Same Procedure Performed: Primary low transverse section Anesthesia: Spinal EBL: 1400 mL IVF: 900 mL (in the OR) Drains: Hanna catheter with 200 mL of urine output Specimens: None Complications: None apparent Findings: Normal uterus, tubes, and ovaries. Indication and Consent: During labor the heart tracing began to show signs of developing hypoxemia. Conservative measures of oxygen supplementation and position changes did not relieve these findings. The oxytocin was discontinued. heart tracing showed some improvement; however, no change in cervical dilation had been noted over the past 4 hours. section was recommended to the patient for wellbeing. The patient understood that the risks of section include, but are not limited to, visceral or vascular injury, infection , blood loss and need for blood transfusion, prolonged hospitalization, and reoperation. The patient stated understanding and desired to proceed. All questions were answered. Procedure in Detail: The patient was taken to the operating room. Hanna catheter and pneumoboots were placed. Spinal anesthesia was performed. She was then prepped and draped in routine fashion in dorsal supine position with a left arenas tilt. Two grams of cefazolin (Ancef) were given for infection prophylaxis. A Pfannenstiel skin incision was made with a scalpel. The incision was carried down to the fascia sharply. The fascia was incised and extended laterally. The inferior aspect of the fascia was grasped with Darryl clamps; the underlying rectus muscle and pyramidalis was dissected off with sharp and blunt technique. In a similar fashion, the superior aspect of the fascia was elevated with Darryl clamps and the rectus muscle was dissected off. Hemostasis was achieved with the Bovie. The rectus musculature was in the midline down to the level of the pubic symphysis. Pre-peritoneal fatty tissue was bluntly dissected to expose the peritoneum. The peritoneum was found to be free of adherent bowel or bladder tissue and entered bluntly. The peritoneal opening was then extended superiorly and inferiorly to the bladder reflection with good visualization of the bladder. The Chintan retractor was inserted. Intraabdominal survey revealed moderate, clear peritoneal fluid and thinned-out lower uterine segment. The lower uterine segment was incised with a scalpel. Thick meconium stained fluid was noted. The uterine incision was extended bluntly with lateral and upward traction. The fetus was in cephalic position. The head was elevated out of the maternal pelvis with special attention paid to avoid using the uterine incision as a fulcrum. Gentle fundal pressure was applied once the head was brought into the incision. The was delivered with minimal difficulty. Bulb suctioning of the infant's nose and mouth was performed on the operative field. Cord blood was collected.The cord was clamped and cut in standard fashion, and the infant was handed over to the awaiting nursery staff. IV oxytocin was initiated to facilitate uterine contractions. The placenta was delivered intact with manual message of the uterine fundus along with gentle cord traction. The inside of the uterus was gently wiped with a lap sponge x2 to assure complete removal of remaining products of conception. The uterine incision was closed with 0 -Vicryl suture in a running locked fashion. A second imbricating layer of 0-Monocryl in addition to a figure-of-8 stitch was also placed. The incision was inspected and hemostasis was achieved. The ovaries and tubes were visualized and found to be normal. The blood clots and fluid were wiped out of the abdomen and pelvis with moist laparotomy sponges. The uterine incision was re-inspected along with all other incised surfaces and good hemostasis was confirmed. The Chintan retractor was removed, and the incision was again examined and good hemostasis was again confirmed. The peritoneum was then reapproximated using 2-0 Vicryl. The fascia was then closed with 2-0 looped PDS suture with care not to include any underlying abdominal contents. The sub-cutaneous layer was reapproximated. The skin was closed with 4-0 Monocryl suture on a Jeff needle in a subcuticular fashion. Sponge and instrument counts were reported as correct times two. Patient tolerated procedure well and was taken to PACU in stable condition. Josselin Wells MD
[2019-01-24] MEDS: Ibuprofen 800 MG Tab PO PRN ×2 (09:28→18:11)
[2019-01-24] MEDS: Docusate Sodium 100 MG Cap PO PRN ×2 (09:29→20:56)
[2019-01-24] MEDS: Prenatal Multivitamin with Calcium/Folic Acid/Iron Tab PO SCH (09:29)
[2019-01-24] MEDS: Simethicone 80 MG Tab.Chew PO SCH ×4 (09:29→20:56)
[2019-01-24] MEDS: Acetaminophen/oxyCODONE 325-5 MG Tab PO PRN ×3 (11:20→20:58)
[2019-01-24] MEDS ORDERED: Oxytocin/Normal Saline 30 UNIT/500 ML BAG IV ONE (12:08)
[2019-01-24] MEDS: Ferrous Sulfate 325 MG Tab PO SCH (13:00)
--- NOTE | 2019-01-24 17:21 | PCM.PNPP ---
- General Info Date of Service: 01/24/19 Subjective Update: Nedra is a 28 yo G1 now P1 on POD1 s/p primary LTCS at 40 2/7 weeks for failure to progress and intolerance. Pre-ecclampsia diagnosed on admission , no severe features. Doing well this morning. Pain well controlled. Lochia minimal. Tolerating general diet. Has been out of bed without difficulty. Hanna is still in place. Swelling still bothering her- wearing her TEDs. Denies headache, vision change, lightheadedness. Passing gas. , and baby is latching well. - Review of Systems General: Reports: No Symptoms HEENT: Reports: No Symptoms Pulmonary: Reports: No Symptoms Cardiovascular: Reports: No Symptoms Gastrointestinal: Reports: No Symptoms Genitourinary: Reports: No Symptoms Musculoskeletal: Reports: No Symptoms Skin: Reports: No Symptoms - General Info Date of Service: 01/24/19 - Patient Data Vital Signs - Most Recent: Last Vital Signs Temp 36.6 C 01/24/19 16:45 Pulse 70 01/24/19 16:45 Resp 16 01/24/19 16:45 BP 131/83 01/24/19 16:45 Pulse Ox 100 01/24/19 16:45 Weight - Most Recent: 92.986 kg I&O - Last 24 Hours: Intake & Output 01/24/19 01/24/19 01/24/19 06:59 14:59 22:59 Intake Total 1240 360 Output Total 475 1950 Balance -475 -710 360 Lab Results - Last 24 Hours: Laboratory Results - last 24 hr 01/24/19 Range/Units 05:30 WBC 21.4 H (5.0-10.0) 10^3/uL RBC 2.84 L (4.2-5.4) 10^6/uL Hgb 9.1 L (12.0-16.0) g/dL Hct 27.5 L (37.0-47.0) % MCV 96.8 D (80-100) fL MCH 32.0 (27.0-34.0) pg MCHC 33.1 (33.0-35.0) g/dL Plt Count 173 (150-450) 10^3/uL Med Orders - Current: Current Medications Acetaminophen (Tylenol) 650 mg PO Q4H PRN PRN Reason: Pain (Mild 1-3) and fever Carboprost Tromethamine (Hemabate Ds) 250 mcg IM ASDIRECTED PRN PRN Reason: HEMORRHAGE Diphenhydramine HCl (Benadryl) 25 mg IVPUSH Q6H PRN PRN Reason: Itching or Nausea Docusate Sodium (Colace) 100 mg PO Q12H PRN PRN Reason: Constipation Last Admin: 01/24/19 09:29 Dose: 100 mg Ferrous Sulfate (Ferrous Sulfate) 325 mg PO DAILY [facility] Last Admin: 01/24/19 13:00 Dose: 325 mg Oxytocin/Sodium Chloride (Pitocin In Ns 30 Unit/500 Ml) 30 unit in 500 mls @ 2 mls/hr IV TITRATE [facility]; Protocol Last Titration: 01/23/19 03:02 Dose: 0 mls/hr Oxytocin/Sodium Chloride (Pitocin In Ns 30 Unit/500 Ml) 30 unit in 500 mls @ 2 mls/hr IV TITRATE [facility]; Protocol Last Titration: 01/23/19 08:30 Dose: 0 mls/hr Tranexamic Acid 1,000 mg/ (Sodium Chloride) 110 mls @ 660 mls/hr IV ONETIME PRN PRN Reason: Bleeding Lactated Ringer's (Ringers, Lactated) 1,000 mls @ 125 mls/hr IV ASDIRECTED [facility] Last Admin: 01/23/19 08:30 Dose: 125 mls/hr Ibuprofen (Motrin) 800 mg PO Q8H PRN PRN Reason: mild pain or fever Last Admin: 01/24/19 09:28 Dose: 800 mg Lidocaine HCl (Xylocaine-Mpf 1%) 30 ml INJECT ASDIRECTED PRN PRN Reason: Perineal Repair Methylergonovine Maleate (Methergine) 0.2 mg IM ASDIRECTED PRN PRN Reason: Hemorrhage Misoprostol (Cytotec) 800 mcg RECTAL ASDIRECTED PRN PRN Reason: Excessive bleeding Naloxone HCl (Narcan) 0.1 mg IVPUSH SEECOMMENT PRN PRN Reason: Respiratory Depression Ondansetron HCl (Zofran) 4 mg IV Q4H PRN PRN Reason: Nausea/Vomiting Oxycodone/Acetaminophen (Percocet 325-5 Mg) 1 tab PO Q4H PRN PRN Reason: Pain (moderate 4-6) Last Admin: 01/24/19 05:35 Dose: 1 tab Oxycodone/Acetaminophen (Percocet 325-5 Mg) 2 tab PO Q4H PRN PRN Reason: Pain (moderate 4-6) Last Admin: 01/24/19 16:47 Dose: 2 tab Prenat Multivit/Rolling [employer] Operator/Iron/Folic Ac ( Plus Iron) 1 each PO DAILY [facility] Last Admin: 01/24/19 09:29 Dose: 1 each Simethicone (Simethicone) 160 mg PO QID [facility] Last Admin: 01/24/19 16:48 Dose: 160 mg Sodium Chloride (Saline Flush) 10 ml FLUSH ASDIRECTED PRN PRN Reason: Keep Vein Open Last Admin: 01/22/19 20:35 Dose: 10 ml Discontinued Medications Carboprost Tromethamine (Hemabate Ds) 250 mcg IM ONETIME ONE Stop: 01/23/19 05:08 Last Admin: 01/23/19 09:07 Dose: Not Given Citric Acid/Sodium Citrate (Bicitra Solution) 30 ml PO ONETIME ONE Stop: 01/23/19 03:21 Last Admin: 01/23/19 03:41 Dose: 30 ml Epinephrine HCl (Adrenalin) Confirm Administered Dose 1 mg .ROUTE .STK-MED ONE Stop: 01/22/19 20:36 Last Admin: 01/22/19 23:13 Dose: Not Given Epinephrine HCl (Adrenalin) Confirm Administered Dose 1 mg .ROUTE .STK-MED ONE Stop: 01/23/19 00:29 Last Admin: 01/23/19 01:25 Dose: Not Given Fentanyl (Sublimaze) Confirm Administered Dose 100 mcg .ROUTE .STK-MED ONE Stop: 01/22/19 20:35 Last Admin: 01/22/19 23:12 Dose: Not Given Fentanyl (Sublimaze) Confirm Administered Dose 100 mcg .ROUTE .STK-MED ONE Stop: 01/23/19 00:29 Last Admin: 01/23/19 01:25 Dose: Not Given Lactated Ringer's (Ringers, Lactated) 500 mls @ 999 mls/hr IV .BOLUS ONE Stop: 01/22/19 20:26 Last Admin: 01/23/19 09:06 Dose: Not Given Lactated Ringer's (Ringers, Lactated) 1,000 mls @ 125 mls/hr IV ASDIRECTED [facility] Last Admin: 01/23/19 01:15 Dose: 125 mls/hr Tranexamic Acid 1,000 mg/ (Sodium Chloride) 110 mls @ 660 mls/hr IV ONETIME PRN PRN Reason: Bleeding Oxytocin/Sodium Chloride (Pitocin In Ns 30 Unit/500 Ml) 30 unit in 500 mls @ 1 mls/hr IV TITRATE [facility]; Protocol Oxytocin/Sodium Chloride (Pitocin In Ns 30 Unit/500 Ml) 30 unit in 500 mls @ 1 mls/hr IV TITRATE [facility]; Protocol Cefazolin Sodium/Dextrose 2 gm (/ Premix) 50 mls @ 100 mls/hr IV ONETIME ONE Stop: 01/23/19 03:49 Last Admin: 01/23/19 03:55 Dose: 100 mls/hr Oxytocin/Sodium Chloride (Pitocin In Ns 30 Unit/500 Ml) Confirm Administered Dose 60 unit in 1,000 mls @ as directed .ROUTE .STK-MED ONE Stop: 01/23/19 03:30 Sodium Chloride (Normal Saline) Confirm Administered Dose 50 mls @ as directed .ROUTE .STK-MED ONE Stop: 01/23/19 04:32 Oxytocin/Sodium Chloride (Pitocin In Ns 30 Unit/500 Ml) 30 unit in 500 mls @ as directed IV .STK-MED ONE Stop: 01/24/19 12:09 Ketorolac Tromethamine (Toradol) 15 mg IVPUSH Q6H [facility] Stop: 01/23/19 23:01 Last Admin: 01/23/19 23:15 Dose: 15 mg Misoprostol (Cytotec) 800 mcg RECTAL ASDIRECTED PRN PRN Reason: Hemorrhage Ondansetron HCl (Zofran) 4 mg IV Q4H PRN PRN Reason: Nausea/Vomiting Last Admin: 01/23/19 00:20 Dose: 4 mg Sodium Bicarbonate (Sodium Bicarbonate 4.2%) Confirm Administered Dose 0.5 meq .ROUTE .STK-MED ONE Stop: 01/22/19 20:36 Last Admin: 01/22/19 23:13 Dose: Not Given Sodium Bicarbonate (Sodium Bicarbonate 4.2%) Confirm Administered Dose 0.5 meq .ROUTE .STK-MED ONE Stop: 01/23/19 00:30 Last Admin: 01/23/19 01:25 Dose: Not Given Sufentanil Citrate (Sufenta) Confirm Administered Dose 50 mcg .ROUTE .STK-MED ONE Stop: 01/22/19 20:36 Last Admin: 01/22/19 23:13 Dose: Not Given Sufentanil Citrate (Sufenta) Confirm Administered Dose 50 mcg .ROUTE .STK-MED ONE Stop: 01/23/19 00:30 Last Admin: 01/23/19 01:25 Dose: Not Given - Infant Interaction Infant Disposition, : in Room with Family Interaction: Holding Infant Feeding: Breastfed Infant; Nursed Well Support Person: Significant Other - Recovery Exam Fundal Tone: Firm Fundal Level: At Umbilicus Fundal Placement: Midline Lochia Amount: Scant Lochia Color: Rubra/Red Perineum Description: Intact, Minimal Bruising/Swelling Episiotomy/Laceration: None Bladder Status: Voiding Urinary Elimination: Voided - Exam HEENT: Pupils Equal, Pupils Reactive Lungs: Clear to Auscultation Cardiovascular: Regular Rate, Regular Rhythm, No Murmurs GI/Abdominal Exam: Soft, Non-Tender, No Distention Extremities: Pedal Edema (2+ bilaterally) Skin: Warm, Dry, Intact Wound/Incisions: Healing Well - Problem List Review Problem List Initiated/Reviewed/Updated: Yes - My Orders Last 24 Hours: My Active Orders 01/23/19 Dinner Nothing Per Oral Diet [DIET] 01/24/19 12:00 Ferrous Sulfate 325 mg PO DAILY - Assessment Assessment:: 28 yo G1 now P1 female s/p primary LTCS at 40 3/7 weeks for arrest of dilation and intolerance. Pre-ecclampsia without severe features EBL 1500 - Plan Plan:: Continue post operative cares. Monitor for signs of anemia. Continue to monitor signs of pre-eclampsia Josselin Wells MD
[2019-01-25] MEDS: Acetaminophen/oxyCODONE 325-5 MG Tab PO PRN ×6 (00:42→22:48)
[2019-01-25] MEDS: Ibuprofen 800 MG Tab PO PRN ×3 (03:56→20:55)
[2019-01-25] MEDS: Docusate Sodium 100 MG Cap PO PRN ×2 (08:20→20:55)
[2019-01-25] MEDS: Ferrous Sulfate 325 MG Tab PO SCH (08:20)
[2019-01-25] MEDS: Prenatal Multivitamin with Calcium/Folic Acid/Iron Tab PO SCH (08:21)
[2019-01-25] MEDS: Simethicone 80 MG Tab.Chew PO SCH ×4 (08:21→20:55)
--- NOTE | 2019-01-25 08:26 | PCM.PNPP ---
<Lalita Jacome - Last Filed: 01/25/19 08:21> - General Info Date of Service: 01/25/19 Admission Dx/Problem (Free Text): Patient Status Order with Admit Dx/Problem 01/22/19 19:56 Patient Status [ADT] Routine Admission Diagnosis/Problem Admission Diagnosis/Problem Rupture of membranes with clear amniotic fluid Subjective Update: Nedra is a 28 yo G1 now P1 on POD2 s/p primary LTCS at 40 3/7 weeks for failure to progress and intolerance. Pre-ecclampsia diagnosed on admission , no severe features. Doing well this morning. Pain well controlled. Lochia minimal. Tolerating general diet. Urinating spontaneously. Ambulating. Swelling still bothering her- wearing her TEDs. Denies headache, vision change, lightheadedness. Passing gas. and this is going well. Feels like milk is in today. Baby boy doing well. - Review of Systems Systems Review Comment:: ROS performed and negative except per HPI - General Info Date of Service: 01/25/19 - Patient Data Vital Signs - Most Recent: Last Vital Signs Temp 98.3 F 01/25/19 04:00 Pulse 81 01/25/19 04:00 Resp 16 01/25/19 04:00 BP 128/79 01/25/19 04:00 Pulse Ox 96 01/25/19 04:00 Weight - Most Recent: 92.986 kg I&O - Last 24 Hours: Intake & Output 01/24/19 01/25/19 01/25/19 22:59 06:59 14:59 Intake Total 360 Balance 360 Med Orders - Current: Current Medications Acetaminophen (Tylenol) 650 mg PO Q4H PRN PRN Reason: Pain (Mild 1-3) and fever Carboprost Tromethamine (Hemabate Ds) 250 mcg IM ASDIRECTED PRN PRN Reason: HEMORRHAGE Diphenhydramine HCl (Benadryl) 25 mg IVPUSH Q6H PRN PRN Reason: Itching or Nausea Docusate Sodium (Colace) 100 mg PO Q12H PRN PRN Reason: Constipation Last Admin: 01/24/19 20:56 Dose: 100 mg Ferrous Sulfate (Ferrous Sulfate) 325 mg PO DAILY [facility] Last Admin: 01/24/19 13:00 Dose: 325 mg Oxytocin/Sodium Chloride (Pitocin In Ns 30 Unit/500 Ml) 30 unit in 500 mls @ 2 mls/hr IV TITRATE [facility]; Protocol Last Titration: 01/23/19 03:02 Dose: 0 mls/hr Oxytocin/Sodium Chloride (Pitocin In Ns 30 Unit/500 Ml) 30 unit in 500 mls @ 2 mls/hr IV TITRATE [facility]; Protocol Last Titration: 01/23/19 08:30 Dose: 0 mls/hr Tranexamic Acid 1,000 mg/ (Sodium Chloride) 110 mls @ 660 mls/hr IV ONETIME PRN PRN Reason: Bleeding Lactated Ringer's (Ringers, Lactated) 1,000 mls @ 125 mls/hr IV ASDIRECTED [facility] Last Admin: 01/23/19 08:30 Dose: 125 mls/hr Ibuprofen (Motrin) 800 mg PO Q8H PRN PRN Reason: mild pain or fever Last Admin: 01/25/19 03:56 Dose: 800 mg Lidocaine HCl (Xylocaine-Mpf 1%) 30 ml INJECT ASDIRECTED PRN PRN Reason: Perineal Repair Methylergonovine Maleate (Methergine) 0.2 mg IM ASDIRECTED PRN PRN Reason: Hemorrhage Misoprostol (Cytotec) 800 mcg RECTAL ASDIRECTED PRN PRN Reason: Excessive bleeding Naloxone HCl (Narcan) 0.1 mg IVPUSH SEECOMMENT PRN PRN Reason: Respiratory Depression Ondansetron HCl (Zofran) 4 mg IV Q4H PRN PRN Reason: Nausea/Vomiting Oxycodone/Acetaminophen (Percocet 325-5 Mg) 1 tab PO Q4H PRN PRN Reason: Pain (moderate 4-6) Last Admin: 01/24/19 05:35 Dose: 1 tab Oxycodone/Acetaminophen (Percocet 325-5 Mg) 2 tab PO Q4H PRN PRN Reason: Pain (moderate 4-6) Last Admin: 01/25/19 03:56 Dose: 2 tab Prenat Multivit/[place]/Iron/Folic Ac ( Plus Iron) 1 each PO DAILY [facility] Last Admin: 01/24/19 09:29 Dose: 1 each Simethicone (Simethicone) 160 mg PO QID [facility] Last Admin: 01/24/19 20:56 Dose: 160 mg Sodium Chloride (Saline Flush) 10 ml FLUSH ASDIRECTED PRN PRN Reason: Keep Vein Open Last Admin: 01/22/19 20:35 Dose: 10 ml Discontinued Medications Carboprost Tromethamine (Hemabate Ds) 250 mcg IM ONETIME ONE Stop: 01/23/19 05:08 Last Admin: 01/23/19 09:07 Dose: Not Given Citric Acid/Sodium Citrate (Bicitra Solution) 30 ml PO ONETIME ONE Stop: 01/23/19 03:21 Last Admin: 01/23/19 03:41 Dose: 30 ml Epinephrine HCl (Adrenalin) Confirm Administered Dose 1 mg .ROUTE .STK-MED ONE Stop: 01/22/19 20:36 Last Admin: 01/22/19 23:13 Dose: Not Given Epinephrine HCl (Adrenalin) Confirm Administered Dose 1 mg .ROUTE .STK-MED ONE Stop: 01/23/19 00:29 Last Admin: 01/23/19 01:25 Dose: Not Given Fentanyl (Sublimaze) Confirm Administered Dose 100 mcg .ROUTE .STK-MED ONE Stop: 01/22/19 20:35 Last Admin: 01/22/19 23:12 Dose: Not Given Fentanyl (Sublimaze) Confirm Administered Dose 100 mcg .ROUTE .STK-MED ONE Stop: 01/23/19 00:29 Last Admin: 01/23/19 01:25 Dose: Not Given Lactated Ringer's (Ringers, Lactated) 500 mls @ 999 mls/hr IV .BOLUS ONE Stop: 01/22/19 20:26 Last Admin: 01/23/19 09:06 Dose: Not Given Lactated Ringer's (Ringers, Lactated) 1,000 mls @ 125 mls/hr IV ASDIRECTED [facility] Last Admin: 01/23/19 01:15 Dose: 125 mls/hr Tranexamic Acid 1,000 mg/ (Sodium Chloride) 110 mls @ 660 mls/hr IV ONETIME PRN PRN Reason: Bleeding Oxytocin/Sodium Chloride (Pitocin In Ns 30 Unit/500 Ml) 30 unit in 500 mls @ 1 mls/hr IV TITRATE [facility]; Protocol Oxytocin/Sodium Chloride (Pitocin In Ns 30 Unit/500 Ml) 30 unit in 500 mls @ 1 mls/hr IV TITRATE [facility]; Protocol Cefazolin Sodium/Dextrose 2 gm (/ Premix) 50 mls @ 100 mls/hr IV ONETIME ONE Stop: 01/23/19 03:49 Last Admin: 01/23/19 03:55 Dose: 100 mls/hr Oxytocin/Sodium Chloride (Pitocin In Ns 30 Unit/500 Ml) Confirm Administered Dose 60 unit in 1,000 mls @ as directed .ROUTE .STK-MED ONE Stop: 01/23/19 03:30 Sodium Chloride (Normal Saline) Confirm Administered Dose 50 mls @ as directed .ROUTE .STK-MED ONE Stop: 01/23/19 04:32 Oxytocin/Sodium Chloride (Pitocin In Ns 30 Unit/500 Ml) 30 unit in 500 mls @ as directed IV .STK-MED ONE Stop: 01/24/19 12:09 Ketorolac Tromethamine (Toradol) 15 mg IVPUSH Q6H [facility] Stop: 01/23/19 23:01 Last Admin: 01/23/19 23:15 Dose: 15 mg Misoprostol (Cytotec) 800 mcg RECTAL ASDIRECTED PRN PRN Reason: Hemorrhage Ondansetron HCl (Zofran) 4 mg IV Q4H PRN PRN Reason: Nausea/Vomiting Last Admin: 01/23/19 00:20 Dose: 4 mg Sodium Bicarbonate (Sodium Bicarbonate 4.2%) Confirm Administered Dose 0.5 meq .ROUTE .STK-MED ONE Stop: 01/22/19 20:36 Last Admin: 01/22/19 23:13 Dose: Not Given Sodium Bicarbonate (Sodium Bicarbonate 4.2%) Confirm Administered Dose 0.5 meq .ROUTE .STK-MED ONE Stop: 01/23/19 00:30 Last Admin: 01/23/19 01:25 Dose: Not Given Sufentanil Citrate (Sufenta) Confirm Administered Dose 50 mcg .ROUTE .STK-MED ONE Stop: 01/22/19 20:36 Last Admin: 01/22/19 23:13 Dose: Not Given Sufentanil Citrate (Sufenta) Confirm Administered Dose 50 mcg .ROUTE .STK-MED ONE Stop: 01/23/19 00:30 Last Admin: 01/23/19 01:25 Dose: Not Given - Interaction Disposition, : [place] in Room with Family Infant Interaction: Holding Infant Feeding: Breastfed ; Nursed Well Support Person: Significant Other - Recovery Exam Fundal Tone: Firm Fundal Level: At Umbilicus Fundal Placement: Midline Lochia Amount: Scant Lochia Color: Rubra/Red Perineum Description: Intact, Minimal Bruising/Swelling Episiotomy/Laceration: None Bladder Status: Voiding Urinary Elimination: Voided - Exam General: Alert, Oriented, No Acute Distress Neck: Supple Lungs: Clear to Auscultation, Normal Respiratory Effort. No: Crackles, Rales, Rhonchi Cardiovascular: Regular Rate, Regular Rhythm, No Murmurs GI/Abdominal Exam: Soft, Tender (appropriately) Extremities: Non-Tender, Pedal Edema (pitting under TEDs up to hips) Skin: Warm, Dry, Rash Wound/Incisions: Healing Well, No Drainage Psy/Mental Status: Alert, Normal Mood - Problem List & Annotations (1) SROM (spontaneous rupture of membranes) SNOMED Code(s): 275309155 Code(s): GUZ7204 - Status: Resolved Current Visit: Yes (2) Normal labor SNOMED Code(s): 52504158 Code(s): O80 - ENCOUNTER FOR FULL-TERM UNCOMPLICATED DELIVERY; Z37.9 - OUTCOME OF DELIVERY, UNSPECIFIED Status: Resolved Current Visit: Yes (3) Pre-eclampsia SNOMED Code(s): 280010687 Code(s): O14.90 - UNSPECIFIED PRE-ECLAMPSIA, UNSPECIFIED TRIMESTER Status: Acute Current Visit: Yes (4) delivery delivered SNOMED Code(s): 581263648 Code(s): O82 - ENCOUNTER FOR DELIVERY WITHOUT INDICATION Status: Acute Current Visit: Yes (5) Acute blood loss anemia SNOMED Code(s): 177254074 Code(s): D62 - ACUTE POSTHEMORRHAGIC ANEMIA Status: Acute Current Visit: Yes - Problem List Review Problem List Initiated/Reviewed/Updated: Yes - Assessment Assessment:: 28 yo G1 now P1 female POD 2 s/p primary LTCS at 40 3/7 weeks for arrest of dilation and intolerance. Pre-ecclampsia without severe features Acute blood loss anemia- hgb 13.1 pre op and 9.1 today. - Plan Plan:: Continue post operative cares. Monitor for signs of anemia. BPs improved. Anticipate discharge tomorrow. Staffed with Dr. Russell Jacome, PGY3 <Josselin Wells - Last Filed: 01/25/19 14:23> - Patient Data Vital Signs - Most Recent: Last Vital Signs Temp 36.7 C 01/25/19 08:00 Pulse 79 01/25/19 08:00 Resp 16 01/25/19 08:00 BP 131/75 01/25/19 08:00 Pulse Ox 96 01/25/19 04:00 I&O - Last 24 Hours: Intake & Output 01/24/19 01/25/19 01/25/19 22:59 06:59 14:59 Intake Total 360 Balance 360 Med Orders - Current: Current Medications Acetaminophen (Tylenol) 650 mg PO Q4H PRN PRN Reason: Pain (Mild 1-3) and fever Carboprost Tromethamine (Hemabate Ds) 250 mcg IM ASDIRECTED PRN PRN Reason: HEMORRHAGE Diphenhydramine HCl (Benadryl) 25 mg IVPUSH Q6H PRN PRN Reason: Itching or Nausea Docusate Sodium (Colace) 100 mg PO Q12H PRN PRN Reason: Constipation Last Admin: 01/25/19 08:20 Dose: 100 mg Ferrous Sulfate (Ferrous Sulfate) 325 mg PO DAILY [facility] Last Admin: 01/25/19 08:20 Dose: 325 mg Oxytocin/Sodium Chloride (Pitocin In Ns 30 Unit/500 Ml) 30 unit in 500 mls @ 2 mls/hr IV TITRATE [facility]; Protocol Last Titration: 01/23/19 03:02 Dose: 0 mls/hr Oxytocin/Sodium Chloride (Pitocin In Ns 30 Unit/500 Ml) 30 unit in 500 mls @ 2 mls/hr IV TITRATE [facility]; Protocol Last Titration: 01/23/19 08:30 Dose: 0 mls/hr Tranexamic Acid 1,000 mg/ (Sodium Chloride) 110 mls @ 660 mls/hr IV ONETIME PRN PRN Reason: Bleeding Lactated Ringer's (Ringers, Lactated) 1,000 mls @ 125 mls/hr IV ASDIRECTED [facility] Last Admin: 01/23/19 08:30 Dose: 125 mls/hr Ibuprofen (Motrin) 800 mg PO Q8H PRN PRN Reason: mild pain or fever Last Admin: 01/25/19 12:58 Dose: 800 mg Lidocaine HCl (Xylocaine-Mpf 1%) 30 ml INJECT ASDIRECTED PRN PRN Reason: Perineal Repair Methylergonovine Maleate (Methergine) 0.2 mg IM ASDIRECTED PRN PRN Reason: Hemorrhage Misoprostol (Cytotec) 800 mcg RECTAL ASDIRECTED PRN PRN Reason: Excessive bleeding Naloxone HCl (Narcan) 0.1 mg IVPUSH SEECOMMENT PRN PRN Reason: Respiratory Depression Ondansetron HCl (Zofran) 4 mg IV Q4H PRN PRN Reason: Nausea/Vomiting Oxycodone/Acetaminophen (Percocet 325-5 Mg) 1 tab PO Q4H PRN PRN Reason: Pain (moderate 4-6) Last Admin: 01/24/19 05:35 Dose: 1 tab Oxycodone/Acetaminophen (Percocet 325-5 Mg) 2 tab PO Q4H PRN PRN Reason: Pain (moderate 4-6) Last Admin: 01/25/19 12:58 Dose: 2 tab Prenat Multivit/[place]/Iron/Folic Ac ( Plus Iron) 1 each PO DAILY [facility] Last Admin: 01/25/19 08:21 Dose: 1 each Simethicone (Simethicone) 160 mg PO QID [facility] Last Admin: 01/25/19 12:57 Dose: 160 mg Sodium Chloride (Saline Flush) 10 ml FLUSH ASDIRECTED PRN PRN Reason: Keep Vein Open Last Admin: 01/22/19 20:35 Dose: 10 ml Discontinued Medications Carboprost Tromethamine (Hemabate Ds) 250 mcg IM ONETIME ONE Stop: 01/23/19 05:08 Last Admin: 01/23/19 09:07 Dose: Not Given Citric Acid/Sodium Citrate (Bicitra Solution) 30 ml PO ONETIME ONE Stop: 01/23/19 03:21 Last Admin: 01/23/19 03:41 Dose: 30 ml Dexamethasone (Dexamethasone) 8 mg IV .STK-MED ONE Stop: 01/25/19 12:07 Ephedrine Sulfate (Ephedrine Sulfate) 20 mg IV .STK-MED ONE Stop: 01/25/19 12:07 Epinephrine HCl (Adrenalin) Confirm Administered Dose 1 mg .ROUTE .STK-MED ONE Stop: 01/22/19 20:36 Last Admin: 01/22/19 23:13 Dose: Not Given Epinephrine HCl (Adrenalin) Confirm Administered Dose 1 mg .ROUTE .STK-MED ONE Stop: 01/23/19 00:29 Last Admin: 01/23/19 01:25 Dose: Not Given Epinephrine HCl (Adrenalin) 0.1 mg .XX .STK-MED ONE Stop: 01/25/19 12:19 Fentanyl (Sublimaze) Confirm Administered Dose 100 mcg .ROUTE .STK-MED ONE Stop: 01/22/19 20:35 Last Admin: 01/22/19 23:12 Dose: Not Given Fentanyl (Sublimaze) Confirm Administered Dose 100 mcg .ROUTE .STK-MED ONE Stop: 01/23/19 00:29 Last Admin: 01/23/19 01:25 Dose: Not Given Fentanyl (Sublimaze) 30 mcg ITHECAL .STK-MED ONE Stop: 01/25/19 12:18 Lactated Ringer's (Ringers, Lactated) 500 mls @ 999 mls/hr IV .BOLUS ONE Stop: 01/22/19 20:26 Last Admin: 01/23/19 09:06 Dose: Not Given Lactated Ringer's (Ringers, Lactated) 1,000 mls @ 125 mls/hr IV ASDIRECTED [facility] Last Admin: 01/23/19 01:15 Dose: 125 mls/hr Tranexamic Acid 1,000 mg/ (Sodium Chloride) 110 mls @ 660 mls/hr IV ONETIME PRN PRN Reason: Bleeding Oxytocin/Sodium Chloride (Pitocin In Ns 30 Unit/500 Ml) 30 unit in 500 mls @ 1 mls/hr IV TITRATE [facility]; Protocol Oxytocin/Sodium Chloride (Pitocin In Ns 30 Unit/500 Ml) 30 unit in 500 mls @ 1 mls/hr IV TITRATE [facility]; Protocol Cefazolin Sodium/Dextrose 2 gm (/ Premix) 50 mls @ 100 mls/hr IV ONETIME ONE Stop: 01/23/19 03:49 Last Admin: 01/23/19 03:55 Dose: 100 mls/hr Oxytocin/Sodium Chloride (Pitocin In Ns 30 Unit/500 Ml) Confirm Administered Dose 60 unit in 1,000 mls @ as directed .ROUTE .STK-MED ONE Stop: 01/23/19 03:30 Sodium Chloride (Normal Saline) Confirm Administered Dose 50 mls @ as directed .ROUTE .STK-MED ONE Stop: 01/23/19 04:32 Oxytocin/Sodium Chloride (Pitocin In Ns 30 Unit/500 Ml) 30 unit in 500 mls @ as directed IV .STK-MED ONE Stop: 01/24/19 12:09 Lactated Ringer's (Ringers, Lactated) 1,000 mls @ as directed IV .STK-MED ONE Stop: 01/25/19 12:07 Ketorolac Tromethamine (Toradol) 15 mg IVPUSH Q6H [facility] Stop: 01/23/19 23:01 Last Admin: 01/23/19 23:15 Dose: 15 mg Ketorolac Tromethamine (Toradol) 30 mg IVPUSH .STK-MED ONE Stop: 01/25/19 12:07 Misoprostol (Cytotec) 800 mcg RECTAL ASDIRECTED PRN PRN Reason: Hemorrhage Morphine Sulfate (Duramorph Pf) 0.2 mg .XX .STK-MED ONE Stop: 01/25/19 12:07 Ondansetron HCl (Zofran) 4 mg IV Q4H PRN PRN Reason: Nausea/Vomiting Last Admin: 01/23/19 00:20 Dose: 4 mg Promethazine HCl (Phenergan) 12.5 mg .XX .STK-MED ONE Stop: 01/25/19 12:07 Sodium Bicarbonate (Sodium Bicarbonate 4.2%) Confirm Administered Dose 0.5 meq .ROUTE .STK-MED ONE Stop: 01/22/19 20:36 Last Admin: 01/22/19 23:13 Dose: Not Given Sodium Bicarbonate (Sodium Bicarbonate 4.2%) Confirm Administered Dose 0.5 meq .ROUTE .STK-MED ONE Stop: 01/23/19 00:30 Last Admin: 01/23/19 01:25 Dose: Not Given Sodium Bicarbonate (Sodium Bicarbonate 4.2%) 0.5 meq IV .STK-MED ONE Stop: 01/25/19 12:07 Sodium Bicarbonate (Sodium Bicarbonate 4.2%) 0.5 meq .XX .STK-MED ONE Stop: 01/25/19 12:19 Sufentanil Citrate (Sufenta) Confirm Administered Dose 50 mcg .ROUTE .STK-MED ONE Stop: 01/22/19 20:36 Last Admin: 01/22/19 23:13 Dose: Not Given Sufentanil Citrate (Sufenta) Confirm Administered Dose 50 mcg .ROUTE .STK-MED ONE Stop: 01/23/19 00:30 Last Admin: 01/23/19 01:25 Dose: Not Given Sufentanil Citrate (Sufenta) 20 mcg ITHECAL .STK-MED ONE Stop: 01/25/19 12:18 - Plan Plan:: Agree with resident assessment and plan. Doing well. Anticipate discharge tomorrow. Josselin Wells MD
[2019-01-25] MEDS ORDERED: ePHEDrine 50 MG/ML SDV IV ONE (12:06)
[2019-01-25] MEDS ORDERED: Dexamethasone 4 MG/ML SDV IV ONE (12:06)
[2019-01-25] MEDS ORDERED: Promethazine 25 MG/ML SDV ONE (12:06)
[2019-01-25] MEDS ORDERED: Lactated Ringers 1,000 ML IV ONE (12:06)
[2019-01-25] MEDS ORDERED: Ketorolac 30 MG/ML SDV IVPUSH ONE (12:06)
[2019-01-25] MEDS ORDERED: Morphine PF 1 MG/ML Amp ONE (12:06)
[2019-01-25] MEDS ORDERED: fentaNYL 100 MCG/2 ML SDV ITHECAL ONE (12:17)
[2019-01-25] MEDS ORDERED: EPINEPHrine 1 MG/ML SDV ONE (12:18)
[2019-01-26] MEDS: Acetaminophen/oxyCODONE 325-5 MG Tab PO PRN ×2 (04:27→08:59)
[2019-01-26] MEDS: Ibuprofen 800 MG Tab PO PRN (04:27)
--- NOTE | 2019-01-26 08:04 | PCM.PNPP ---
<Lalita Jacome - Last Filed: 01/26/19 08:01> - General Info Date of Service: 01/26/19 Admission Dx/Problem (Free Text): Patient Status Order with Admit Dx/Problem 01/22/19 19:56 Patient Status [ADT] Routine Admission Diagnosis/Problem Admission Diagnosis/Problem Rupture of membranes with clear amniotic fluid Subjective Update: Nedra is a 28 yo G1 now P1 on POD3 s/p primary LTCS at 40 2/7 weeks for failure to progress and intolerance. Pre-ecclampsia diagnosed on admission , no severe features. Doing well this morning. Pain well controlled. Lochia minimal. Tolerating general diet. Has been out of bed without difficulty. Swelling still bothering her- wearing her TEDs. Denies headache, vision change, lightheadedness. Passing gas. , milk is in. Baby latching well. - Review of Systems Systems Review Comment:: ROS performed and negative except per HPI - General Info Date of Service: 01/26/19 - Patient Data Vital Signs - Most Recent: Last Vital Signs Temp 98.0 F 01/26/19 04:30 Pulse 70 01/26/19 04:30 Resp 18 01/26/19 04:30 BP 119/77 01/26/19 04:30 Pulse Ox 98 01/26/19 04:30 Weight - Most Recent: 92.986 kg Med Orders - Current: Current Medications Acetaminophen (Tylenol) 650 mg PO Q4H PRN PRN Reason: Pain (Mild 1-3) and fever Carboprost Tromethamine (Hemabate Ds) 250 mcg IM ASDIRECTED PRN PRN Reason: HEMORRHAGE Diphenhydramine HCl (Benadryl) 25 mg IVPUSH Q6H PRN PRN Reason: Itching or Nausea Docusate Sodium (Colace) 100 mg PO Q12H PRN PRN Reason: Constipation Last Admin: 01/25/19 20:55 Dose: 100 mg Ferrous Sulfate (Ferrous Sulfate) 325 mg PO DAILY CRISTY Last Admin: 01/25/19 08:20 Dose: 325 mg Oxytocin/Sodium Chloride (Pitocin In Ns 30 Unit/500 Ml) 30 unit in 500 mls @ 2 mls/hr IV TITRATE CRISTY; Protocol Last Titration: 01/23/19 03:02 Dose: 0 mls/hr Oxytocin/Sodium Chloride (Pitocin In Ns 30 Unit/500 Ml) 30 unit in 500 mls @ 2 mls/hr IV TITRATE CRISTY; Protocol Last Titration: 01/23/19 08:30 Dose: 0 mls/hr Tranexamic Acid 1,000 mg/ (Sodium Chloride) 110 mls @ 660 mls/hr IV ONETIME PRN PRN Reason: Bleeding Lactated Ringer's (Ringers, Lactated) 1,000 mls @ 125 mls/hr IV ASDIRECTED CRISTY Last Admin: 01/23/19 08:30 Dose: 125 mls/hr Ibuprofen (Motrin) 800 mg PO Q8H PRN PRN Reason: mild pain or fever Last Admin: 01/26/19 04:27 Dose: 800 mg Lidocaine HCl (Xylocaine-Mpf 1%) 30 ml INJECT ASDIRECTED PRN PRN Reason: Perineal Repair Methylergonovine Maleate (Methergine) 0.2 mg IM ASDIRECTED PRN PRN Reason: Hemorrhage Misoprostol (Cytotec) 800 mcg RECTAL ASDIRECTED PRN PRN Reason: Excessive bleeding Naloxone HCl (Narcan) 0.1 mg IVPUSH SEECOMMENT PRN PRN Reason: Respiratory Depression Ondansetron HCl (Zofran) 4 mg IV Q4H PRN PRN Reason: Nausea/Vomiting Oxycodone/Acetaminophen (Percocet 325-5 Mg) 1 tab PO Q4H PRN PRN Reason: Pain (moderate 4-6) Last Admin: 01/24/19 05:35 Dose: 1 tab Oxycodone/Acetaminophen (Percocet 325-5 Mg) 2 tab PO Q4H PRN PRN Reason: Pain (moderate 4-6) Last Admin: 01/26/19 04:27 Dose: 2 tab Prenat Multivit/Bethel/Iron/Folic Ac ( Plus Iron) 1 each PO DAILY [facility] Last Admin: 01/25/19 08:21 Dose: 1 each Simethicone (Simethicone) 160 mg PO QID [facility] Last Admin: 01/25/19 20:55 Dose: 160 mg Sodium Chloride (Saline Flush) 10 ml FLUSH ASDIRECTED PRN PRN Reason: Keep Vein Open Last Admin: 01/22/19 20:35 Dose: 10 ml Discontinued Medications Carboprost Tromethamine (Hemabate Ds) 250 mcg IM ONETIME ONE Stop: 01/23/19 05:08 Last Admin: 01/23/19 09:07 Dose: Not Given Citric Acid/Sodium Citrate (Bicitra Solution) 30 ml PO ONETIME ONE Stop: 01/23/19 03:21 Last Admin: 01/23/19 03:41 Dose: 30 ml Dexamethasone (Dexamethasone) 8 mg IV .STK-MED ONE Stop: 01/25/19 12:07 Ephedrine Sulfate (Ephedrine Sulfate) 20 mg IV .STK-MED ONE Stop: 01/25/19 12:07 Epinephrine HCl (Adrenalin) Confirm Administered Dose 1 mg .ROUTE .STK-MED ONE Stop: 01/22/19 20:36 Last Admin: 01/22/19 23:13 Dose: Not Given Epinephrine HCl (Adrenalin) Confirm Administered Dose 1 mg .ROUTE .STK-MED ONE Stop: 01/23/19 00:29 Last Admin: 01/23/19 01:25 Dose: Not Given Epinephrine HCl (Adrenalin) 0.1 mg .XX .STK-MED ONE Stop: 01/25/19 12:19 Fentanyl (Sublimaze) Confirm Administered Dose 100 mcg .ROUTE .STK-MED ONE Stop: 01/22/19 20:35 Last Admin: 01/22/19 23:12 Dose: Not Given Fentanyl (Sublimaze) Confirm Administered Dose 100 mcg .ROUTE .STK-MED ONE Stop: 01/23/19 00:29 Last Admin: 01/23/19 01:25 Dose: Not Given Fentanyl (Sublimaze) 30 mcg ITHECAL .STK-MED ONE Stop: 01/25/19 12:18 Lactated Ringer's (Ringers, Lactated) 500 mls @ 999 mls/hr IV .BOLUS ONE Stop: 01/22/19 20:26 Last Admin: 01/23/19 09:06 Dose: Not Given Lactated Ringer's (Ringers, Lactated) 1,000 mls @ 125 mls/hr IV ASDIRECTED CRISTY Last Admin: 01/23/19 01:15 Dose: 125 mls/hr Tranexamic Acid 1,000 mg/ (Sodium Chloride) 110 mls @ 660 mls/hr IV ONETIME PRN PRN Reason: Bleeding Oxytocin/Sodium Chloride (Pitocin In Ns 30 Unit/500 Ml) 30 unit in 500 mls @ 1 mls/hr IV TITRATE CRISTY; Protocol Oxytocin/Sodium Chloride (Pitocin In Ns 30 Unit/500 Ml) 30 unit in 500 mls @ 1 mls/hr IV TITRATE CRISTY; Protocol Cefazolin Sodium/Dextrose 2 gm (/ Premix) 50 mls @ 100 mls/hr IV ONETIME ONE Stop: 01/23/19 03:49 Last Admin: 01/23/19 03:55 Dose: 100 mls/hr Oxytocin/Sodium Chloride (Pitocin In Ns 30 Unit/500 Ml) Confirm Administered Dose 60 unit in 1,000 mls @ as directed .ROUTE .STK-MED ONE Stop: 01/23/19 03:30 Sodium Chloride (Normal Saline) Confirm Administered Dose 50 mls @ as directed .ROUTE .STK-MED ONE Stop: 01/23/19 04:32 Oxytocin/Sodium Chloride (Pitocin In Ns 30 Unit/500 Ml) 30 unit in 500 mls @ as directed IV .STK-MED ONE Stop: 01/24/19 12:09 Lactated Ringer's (Ringers, Lactated) 1,000 mls @ as directed IV .STK-MED ONE Stop: 01/25/19 12:07 Ketorolac Tromethamine (Toradol) 15 mg IVPUSH Q6H CRISTY Stop: 01/23/19 23:01 Last Admin: 01/23/19 23:15 Dose: 15 mg Ketorolac Tromethamine (Toradol) 30 mg IVPUSH .STK-MED ONE Stop: 01/25/19 12:07 Misoprostol (Cytotec) 800 mcg RECTAL ASDIRECTED PRN PRN Reason: Hemorrhage Morphine Sulfate (Duramorph Pf) 0.2 mg .XX .STK-MED ONE Stop: 01/25/19 12:07 Ondansetron HCl (Zofran) 4 mg IV Q4H PRN PRN Reason: Nausea/Vomiting Last Admin: 01/23/19 00:20 Dose: 4 mg Promethazine HCl (Phenergan) 12.5 mg .XX .STK-MED ONE Stop: 01/25/19 12:07 Sodium Bicarbonate (Sodium Bicarbonate 4.2%) Confirm Administered Dose 0.5 meq .ROUTE .STK-MED ONE Stop: 01/22/19 20:36 Last Admin: 01/22/19 23:13 Dose: Not Given Sodium Bicarbonate (Sodium Bicarbonate 4.2%) Confirm Administered Dose 0.5 meq .ROUTE .STK-MED ONE Stop: 01/23/19 00:30 Last Admin: 01/23/19 01:25 Dose: Not Given Sodium Bicarbonate (Sodium Bicarbonate 4.2%) 0.5 meq IV .STK-MED ONE Stop: 01/25/19 12:07 Sodium Bicarbonate (Sodium Bicarbonate 4.2%) 0.5 meq .XX .STK-MED ONE Stop: 01/25/19 12:19 Sufentanil Citrate (Sufenta) Confirm Administered Dose 50 mcg .ROUTE .STK-MED ONE Stop: 01/22/19 20:36 Last Admin: 01/22/19 23:13 Dose: Not Given Sufentanil Citrate (Sufenta) Confirm Administered Dose 50 mcg .ROUTE .STK-MED ONE Stop: 01/23/19 00:30 Last Admin: 01/23/19 01:25 Dose: Not Given Sufentanil Citrate (Sufenta) 20 mcg ITHECAL .STK-MED ONE Stop: 01/25/19 12:18 - Infant Interaction Infant Disposition, : in Room with Family Infant Interaction: Holding Infant Feeding: Breastfed Infant; Nursed Well Support Person: Significant Other - Recovery Exam Fundal Tone: Firm Fundal Level: 1 Fingerbreadths Below Umbilicus Fundal Placement: Midline Lochia Amount: Small Lochia Color: Rubra/Red Perineum Description: Intact, Minimal Bruising/Swelling Episiotomy/Laceration: None Bladder Status: Voiding Urinary Elimination: Voided - Exam General: Alert Neck: Supple Lungs: Clear to Auscultation, Normal Respiratory Effort. No: Crackles, Rales, Wheezing Cardiovascular: Regular Rate, Regular Rhythm, No Murmurs GI/Abdominal Exam: Soft, Tender (appropriately) Extremities: Non-Tender, Pedal Edema (3+ with TEDs in place, improving from admission) Skin: Warm, Dry, Rash - Problem List & Annotations (1) SROM (spontaneous rupture of membranes) SNOMED Code(s): 090467725 Code(s): RTI0433 - Status: Resolved Current Visit: Yes (2) Normal labor SNOMED Code(s): 15117374 Code(s): O80 - ENCOUNTER FOR FULL-TERM UNCOMPLICATED DELIVERY; Z37.9 - OUTCOME OF DELIVERY, UNSPECIFIED Status: Resolved Current Visit: Yes (3) Pre-eclampsia SNOMED Code(s): 825893305 Code(s): O14.90 - UNSPECIFIED PRE-ECLAMPSIA, UNSPECIFIED TRIMESTER Status: Acute Current Visit: Yes (4) delivery delivered SNOMED Code(s): 657688786 Code(s): O82 - ENCOUNTER FOR DELIVERY WITHOUT INDICATION Status: Acute Current Visit: Yes (5) Acute blood loss anemia SNOMED Code(s): 712089105 Code(s): D62 - ACUTE POSTHEMORRHAGIC ANEMIA Status: Acute Current Visit: Yes - Problem List Review Problem List Initiated/Reviewed/Updated: Yes - Assessment Assessment:: 28 yo G1 now P1 female POD3 s/p primary LTCS at 40 3/7 weeks for arrest of dilation and intolerance. Pre-ecclampsia without severe features Acute blood loss anemia, asymptomatic. Hgb 9.1 - Plan Plan:: Continue post operative cares. Plan for discharge today. Staffed with Dr. Russell Jacome, PGY3 <Josselin Wells - Last Filed: 01/26/19 10:42> - Patient Data Vital Signs - Most Recent: Last Vital Signs Temp 37.0 C 01/26/19 08:00 Pulse 87 01/26/19 08:00 Resp 16 01/26/19 08:00 BP 128/85 01/26/19 08:00 Pulse Ox 100 01/26/19 08:00 Med Orders - Current: Current Medications Acetaminophen (Tylenol) 650 mg PO Q4H PRN PRN Reason: Pain (Mild 1-3) and fever Carboprost Tromethamine (Hemabate Ds) 250 mcg IM ASDIRECTED PRN PRN Reason: HEMORRHAGE Diphenhydramine HCl (Benadryl) 25 mg IVPUSH Q6H PRN PRN Reason: Itching or Nausea Docusate Sodium (Colace) 100 mg PO Q12H PRN PRN Reason: Constipation Last Admin: 01/26/19 09:05 Dose: 100 mg Ferrous Sulfate (Ferrous Sulfate) 325 mg PO DAILY [facility]ST[facility] Last Admin: 01/26/19 08:56 Dose: 325 mg Oxytocin/Sodium Chloride (Pitocin In Ns 30 Unit/500 Ml) 30 unit in 500 mls @ 2 mls/hr IV TITRATE CRISTY; Protocol Last Titration: 01/23/19 03:02 Dose: 0 mls/hr Oxytocin/Sodium Chloride (Pitocin In Ns 30 Unit/500 Ml) 30 unit in 500 mls @ 2 mls/hr IV TITRATE CRISTY; Protocol Last Titration: 01/23/19 08:30 Dose: 0 mls/hr Tranexamic Acid 1,000 mg/ (Sodium Chloride) 110 mls @ 660 mls/hr IV ONETIME PRN PRN Reason: Bleeding Lactated Ringer's (Ringers, Lactated) 1,000 mls @ 125 mls/hr IV ASDIRECTED CRISTY Last Admin: 01/23/19 08:30 Dose: 125 mls/hr Ibuprofen (Motrin) 800 mg PO Q8H PRN PRN Reason: mild pain or fever Last Admin: 01/26/19 04:27 Dose: 800 mg Lidocaine HCl (Xylocaine-Mpf 1%) 30 ml INJECT ASDIRECTED PRN PRN Reason: Perineal Repair Methylergonovine Maleate (Methergine) 0.2 mg IM ASDIRECTED PRN PRN Reason: Hemorrhage Misoprostol (Cytotec) 800 mcg RECTAL ASDIRECTED PRN PRN Reason: Excessive bleeding Naloxone HCl (Narcan) 0.1 mg IVPUSH SEECOMMENT PRN PRN Reason: Respiratory Depression Ondansetron HCl (Zofran) 4 mg IV Q4H PRN PRN Reason: Nausea/Vomiting Oxycodone/Acetaminophen (Percocet 325-5 Mg) 1 tab PO Q4H PRN PRN Reason: Pain (moderate 4-6) Last Admin: 01/24/19 05:35 Dose: 1 tab Oxycodone/Acetaminophen (Percocet 325-5 Mg) 2 tab PO Q4H PRN PRN Reason: Pain (moderate 4-6) Last Admin: 01/26/19 08:59 Dose: 2 tab Prenat Multivit/Bethel/Iron/Folic Ac ( Plus Iron) 1 each PO DAILY [facility] Last Admin: 01/26/19 08:56 Dose: 1 each Simethicone (Simethicone) 160 mg PO QID [facility] Last Admin: 01/26/19 08:56 Dose: 160 mg Sodium Chloride (Saline Flush) 10 ml FLUSH ASDIRECTED PRN PRN Reason: Keep Vein Open Last Admin: 01/22/19 20:35 Dose: 10 ml Discontinued Medications Carboprost Tromethamine (Hemabate Ds) 250 mcg IM ONETIME ONE Stop: 01/23/19 05:08 Last Admin: 01/23/19 09:07 Dose: Not Given Citric Acid/Sodium Citrate (Bicitra Solution) 30 ml PO ONETIME ONE Stop: 01/23/19 03:21 Last Admin: 01/23/19 03:41 Dose: 30 ml Dexamethasone (Dexamethasone) 8 mg IV .STK-MED ONE Stop: 01/25/19 12:07 Ephedrine Sulfate (Ephedrine Sulfate) 20 mg IV .STK-MED ONE Stop: 01/25/19 12:07 Epinephrine HCl (Adrenalin) Confirm Administered Dose 1 mg .ROUTE .STK-MED ONE Stop: 01/22/19 20:36 Last Admin: 01/22/19 23:13 Dose: Not Given Epinephrine HCl (Adrenalin) Confirm Administered Dose 1 mg .ROUTE .STK-MED ONE Stop: 01/23/19 00:29 Last Admin: 01/23/19 01:25 Dose: Not Given Epinephrine HCl (Adrenalin) 0.1 mg .XX .STK-MED ONE Stop: 01/25/19 12:19 Fentanyl (Sublimaze) Confirm Administered Dose 100 mcg .ROUTE .STK-MED ONE Stop: 01/22/19 20:35 Last Admin: 01/22/19 23:12 Dose: Not Given Fentanyl (Sublimaze) Confirm Administered Dose 100 mcg .ROUTE .STK-MED ONE Stop: 01/23/19 00:29 Last Admin: 01/23/19 01:25 Dose: Not Given Fentanyl (Sublimaze) 30 mcg ITHECAL .STK-MED ONE Stop: 01/25/19 12:18 Lactated Ringer's (Ringers, Lactated) 500 mls @ 999 mls/hr IV .BOLUS ONE Stop: 01/22/19 20:26 Last Admin: 01/23/19 09:06 Dose: Not Given Lactated Ringer's (Ringers, Lactated) 1,000 mls @ 125 mls/hr IV ASDIRECTED CRISTY Last Admin: 01/23/19 01:15 Dose: 125 mls/hr Tranexamic Acid 1,000 mg/ (Sodium Chloride) 110 mls @ 660 mls/hr IV ONETIME PRN PRN Reason: Bleeding Oxytocin/Sodium Chloride (Pitocin In Ns 30 Unit/500 Ml) 30 unit in 500 mls @ 1 mls/hr IV TITRATE CRISTY; Protocol Oxytocin/Sodium Chloride (Pitocin In Ns 30 Unit/500 Ml) 30 unit in 500 mls @ 1 mls/hr IV TITRATE CRISTY; Protocol Cefazolin Sodium/Dextrose 2 gm (/ Premix) 50 mls @ 100 mls/hr IV ONETIME ONE Stop: 01/23/19 03:49 Last Admin: 01/23/19 03:55 Dose: 100 mls/hr Oxytocin/Sodium Chloride (Pitocin In Ns 30 Unit/500 Ml) Confirm Administered Dose 60 unit in 1,000 mls @ as directed .ROUTE .STK-MED ONE Stop: 01/23/19 03:30 Sodium Chloride (Normal Saline) Confirm Administered Dose 50 mls @ as directed .ROUTE .STK-MED ONE Stop: 01/23/19 04:32 Oxytocin/Sodium Chloride (Pitocin In Ns 30 Unit/500 Ml) 30 unit in 500 mls @ as directed IV .STK-MED ONE Stop: 01/24/19 12:09 Lactated Ringer's (Ringers, Lactated) 1,000 mls @ as directed IV .STK-MED ONE Stop: 01/25/19 12:07 Ketorolac Tromethamine (Toradol) 15 mg IVPUSH Q6H CRISTY Stop: 01/23/19 23:01 Last Admin: 01/23/19 23:15 Dose: 15 mg Ketorolac Tromethamine (Toradol) 30 mg IVPUSH .STK-MED ONE Stop: 01/25/19 12:07 Misoprostol (Cytotec) 800 mcg RECTAL ASDIRECTED PRN PRN Reason: Hemorrhage Morphine Sulfate (Duramorph Pf) 0.2 mg .XX .STK-MED ONE Stop: 01/25/19 12:07 Ondansetron HCl (Zofran) 4 mg IV Q4H PRN PRN Reason: Nausea/Vomiting Last Admin: 01/23/19 00:20 Dose: 4 mg Promethazine HCl (Phenergan) 12.5 mg .XX .STK-MED ONE Stop: 01/25/19 12:07 Sodium Bicarbonate (Sodium Bicarbonate 4.2%) Confirm Administered Dose 0.5 meq .ROUTE .STK-MED ONE Stop: 01/22/19 20:36 Last Admin: 01/22/19 23:13 Dose: Not Given Sodium Bicarbonate (Sodium Bicarbonate 4.2%) Confirm Administered Dose 0.5 meq .ROUTE .STK-MED ONE Stop: 01/23/19 00:30 Last Admin: 01/23/19 01:25 Dose: Not Given Sodium Bicarbonate (Sodium Bicarbonate 4.2%) 0.5 meq IV .STK-MED ONE Stop: 01/25/19 12:07 Sodium Bicarbonate (Sodium Bicarbonate 4.2%) 0.5 meq .XX .STK-MED ONE Stop: 01/25/19 12:19 Sufentanil Citrate (Sufenta) Confirm Administered Dose 50 mcg .ROUTE .STK-MED ONE Stop: 01/22/19 20:36 Last Admin: 01/22/19 23:13 Dose: Not Given Sufentanil Citrate (Sufenta) Confirm Administered Dose 50 mcg .ROUTE .STK-MED ONE Stop: 01/23/19 00:30 Last Admin: 01/23/19 01:25 Dose: Not Given Sufentanil Citrate (Sufenta) 20 mcg ITHECAL .STK-MED ONE Stop: 01/25/19 12:18 - Plan Plan:: Agree with resident assessment and plan. Josselin Wells MD
--- NOTE | 2019-01-26 08:11 | PCM.DCSUM1 ---
<Lalita Jacome - Last Filed: 01/26/19 08:05> Discharge Summary - Hospital Course Free Text/Narrative:: Nedra is a 28 yo G1 now P1 female who presented at 40 3/7 weeks for SROM in labor. Diagnosed with pre-ecclampsia without severe features on admission. She progressed to 8cm and had arrest of dilation with intolerance. A primary LTCS was performed and was complicated by post hemorrhage. EBL about 1400ml. TXA was given in OR and bleeding resolved. Preop hgb was 13 and post op was 9.1. Pt asymptomatic. Otherwise post operative course was uncomplicated. At time of discharge she was tolerating general diet, urinating spontaneously, ambulating without difficulty, passing gas. She is and this is going well. Baby doing well. - Discharge Data Discharge Date: 01/26/19 Discharge Disposition: Home, Self-Care 01 Condition: Good - Discharge Diagnosis/Problem(s) (1) SROM (spontaneous rupture of membranes) SNOMED Code(s): 989101380 ICD Code: [id number] - Status: Resolved Current Visit: Yes (2) Normal labor SNOMED Code(s): 78259841 ICD Code: O80 - ENCOUNTER FOR FULL-TERM UNCOMPLICATED DELIVERY; Z37.9 - OUTCOME OF DELIVERY, UNSPECIFIED Status: Resolved Current Visit: Yes (3) Pre-eclampsia SNOMED Code(s): 228318819 ICD Code: O14.90 - UNSPECIFIED PRE-ECLAMPSIA, UNSPECIFIED TRIMESTER Status : Acute Current Visit: Yes (4) delivery delivered SNOMED Code(s): 080497073 ICD Code: O82 - ENCOUNTER FOR DELIVERY WITHOUT INDICATION Status: Acute Current Visit: Yes (5) Acute blood loss anemia SNOMED Code(s): 164178038 ICD Code: D62 - ACUTE POSTHEMORRHAGIC ANEMIA Status: Acute Current Visit : Yes - Patient Summary/Data Consults: Consultations 01/23/19 13:13 Consult to Machine Tailer [CONS] Routine - Patient Instructions Diet: Regular Diet as Tolerated, Drink 8-10+ Glasses/Day Activity: As Tolerated Driving: May Drive Today Showering/Bathing: May Shower Notify Provider of: Fever, Increased Pain, Nausea and/or Vomiting - Discharge Plan *PRESCRIPTION DRUG MONITORING PROGRAM REVIEWED*: No *COPY OF PRESCRIPTION DRUG MONITORING REPORT IN PATIENT RAJ: No Patient Handouts: Home Care Instructions for Mom, Vaginal Delivery, Care After - Discharge Summary/Plan Comment DC Time >30 min.: No Discharge Summary/Plan Comment: Discharge patient to home. Return criteria discussed as above. Follow up with Dr. Wells for incision check as scheduled. Staffed with Dr. Wells. Lalita Jacome, PGY3 - Patient Data Vitals - Most Recent: Last Vital Signs Temp 98.6 F 01/26/19 08:00 Pulse 87 01/26/19 08:00 Resp 16 01/26/19 08:00 BP 128/85 01/26/19 08:00 Pulse Ox 100 01/26/19 08:00 Weight - Most Recent: 92.986 kg Med Orders - Current: Current Medications Acetaminophen (Tylenol) 650 mg PO Q4H PRN PRN Reason: Pain (Mild 1-3) and fever Carboprost Tromethamine (Hemabate Ds) 250 mcg IM ASDIRECTED PRN PRN Reason: HEMORRHAGE Diphenhydramine HCl (Benadryl) 25 mg IVPUSH Q6H PRN PRN Reason: Itching or Nausea Docusate Sodium (Colace) 100 mg PO Q12H PRN PRN Reason: Constipation Last Admin: 01/25/19 20:55 Dose: 100 mg Ferrous Sulfate (Ferrous Sulfate) 325 mg PO DAILY [facility] Last Admin: 01/25/19 08:20 Dose: 325 mg Oxytocin/Sodium Chloride (Pitocin In Ns 30 Unit/500 Ml) 30 unit in 500 mls @ 2 mls/hr IV TITRATE [facility]; Protocol Last Titration: 01/23/19 03:02 Dose: 0 mls/hr Oxytocin/Sodium Chloride (Pitocin In Ns 30 Unit/500 Ml) 30 unit in 500 mls @ 2 mls/hr IV TITRATE [facility]; Protocol Last Titration: 01/23/19 08:30 Dose: 0 mls/hr Tranexamic Acid 1,000 mg/ (Sodium Chloride) 110 mls @ 660 mls/hr IV ONETIME PRN PRN Reason: Bleeding Lactated Ringer's (Ringers, Lactated) 1,000 mls @ 125 mls/hr IV ASDIRECTED [facility] Last Admin: 01/23/19 08:30 Dose: 125 mls/hr Ibuprofen (Motrin) 800 mg PO Q8H PRN PRN Reason: mild pain or fever Last Admin: 01/26/19 04:27 Dose: 800 mg Lidocaine HCl (Xylocaine-Mpf 1%) 30 ml INJECT ASDIRECTED PRN PRN Reason: Perineal Repair Methylergonovine Maleate (Methergine) 0.2 mg IM ASDIRECTED PRN PRN Reason: Hemorrhage Misoprostol (Cytotec) 800 mcg RECTAL ASDIRECTED PRN PRN Reason: Excessive bleeding Naloxone HCl (Narcan) 0.1 mg IVPUSH SEECOMMENT PRN PRN Reason: Respiratory Depression Ondansetron HCl (Zofran) 4 mg IV Q4H PRN PRN Reason: Nausea/Vomiting Oxycodone/Acetaminophen (Percocet 325-5 Mg) 1 tab PO Q4H PRN PRN Reason: Pain (moderate 4-6) Last Admin: 01/24/19 05:35 Dose: 1 tab Oxycodone/Acetaminophen (Percocet 325-5 Mg) 2 tab PO Q4H PRN PRN Reason: Pain (moderate 4-6) Last Admin: 01/26/19 04:27 Dose: 2 tab Prenat Multivit/Sioux/Iron/Folic Ac ( Plus Iron) 1 each PO DAILY [facility] Last Admin: 01/25/19 08:21 Dose: 1 each Simethicone (Simethicone) 160 mg PO QID [facility] Last Admin: 01/25/19 20:55 Dose: 160 mg Sodium Chloride (Saline Flush) 10 ml FLUSH ASDIRECTED PRN PRN Reason: Keep Vein Open Last Admin: 01/22/19 20:35 Dose: 10 ml Discontinued Medications Carboprost Tromethamine (Hemabate Ds) 250 mcg IM ONETIME ONE Stop: 01/23/19 05:08 Last Admin: 01/23/19 09:07 Dose: Not Given Citric Acid/Sodium Citrate (Bicitra Solution) 30 ml PO ONETIME ONE Stop: 01/23/19 03:21 Last Admin: 01/23/19 03:41 Dose: 30 ml Dexamethasone (Dexamethasone) 8 mg IV .STK-MED ONE Stop: 01/25/19 12:07 Ephedrine Sulfate (Ephedrine Sulfate) 20 mg IV .STK-MED ONE Stop: 01/25/19 12:07 Epinephrine HCl (Adrenalin) Confirm Administered Dose 1 mg .ROUTE .STK-MED ONE Stop: 01/22/19 20:36 Last Admin: 01/22/19 23:13 Dose: Not Given Epinephrine HCl (Adrenalin) Confirm Administered Dose 1 mg .ROUTE .STK-MED ONE Stop: 01/23/19 00:29 Last Admin: 01/23/19 01:25 Dose: Not Given Epinephrine HCl (Adrenalin) 0.1 mg .XX .STK-MED ONE Stop: 01/25/19 12:19 Fentanyl (Sublimaze) Confirm Administered Dose 100 mcg .ROUTE .STK-MED ONE Stop: 01/22/19 20:35 Last Admin: 01/22/19 23:12 Dose: Not Given Fentanyl (Sublimaze) Confirm Administered Dose 100 mcg .ROUTE .STK-MED ONE Stop: 01/23/19 00:29 Last Admin: 01/23/19 01:25 Dose: Not Given Fentanyl (Sublimaze) 30 mcg ITHECAL .STK-MED ONE Stop: 01/25/19 12:18 Lactated Ringer's (Ringers, Lactated) 500 mls @ 999 mls/hr IV .BOLUS ONE Stop: 01/22/19 20:26 Last Admin: 01/23/19 09:06 Dose: Not Given Lactated Ringer's (Ringers, Lactated) 1,000 mls @ 125 mls/hr IV ASDIRECTED [facility] Last Admin: 01/23/19 01:15 Dose: 125 mls/hr Tranexamic Acid 1,000 mg/ (Sodium Chloride) 110 mls @ 660 mls/hr IV ONETIME PRN PRN Reason: Bleeding Oxytocin/Sodium Chloride (Pitocin In Ns 30 Unit/500 Ml) 30 unit in 500 mls @ 1 mls/hr IV TITRATE [facility]; Protocol Oxytocin/Sodium Chloride (Pitocin In Ns 30 Unit/500 Ml) 30 unit in 500 mls @ 1 mls/hr IV TITRATE [facility]; Protocol Cefazolin Sodium/Dextrose 2 gm (/ Premix) 50 mls @ 100 mls/hr IV ONETIME ONE Stop: 01/23/19 03:49 Last Admin: 01/23/19 03:55 Dose: 100 mls/hr Oxytocin/Sodium Chloride (Pitocin In Ns 30 Unit/500 Ml) Confirm Administered Dose 60 unit in 1,000 mls @ as directed .ROUTE .STK-MED ONE Stop: 01/23/19 03:30 Sodium Chloride (Normal Saline) Confirm Administered Dose 50 mls @ as directed .ROUTE .STK-MED ONE Stop: 01/23/19 04:32 Oxytocin/Sodium Chloride (Pitocin In Ns 30 Unit/500 Ml) 30 unit in 500 mls @ as directed IV .STK-MED ONE Stop: 01/24/19 12:09 Lactated Ringer's (Ringers, Lactated) 1,000 mls @ as directed IV .STK-MED ONE Stop: 01/25/19 12:07 Ketorolac Tromethamine (Toradol) 15 mg IVPUSH Q6H [facility] Stop: 01/23/19 23:01 Last Admin: 01/23/19 23:15 Dose: 15 mg Ketorolac Tromethamine (Toradol) 30 mg IVPUSH .STK-MED ONE Stop: 01/25/19 12:07 Misoprostol (Cytotec) 800 mcg RECTAL ASDIRECTED PRN PRN Reason: Hemorrhage Morphine Sulfate (Duramorph Pf) 0.2 mg .XX .STK-MED ONE Stop: 01/25/19 12:07 Ondansetron HCl (Zofran) 4 mg IV Q4H PRN PRN Reason: Nausea/Vomiting Last Admin: 01/23/19 00:20 Dose: 4 mg Promethazine HCl (Phenergan) 12.5 mg .XX .STK-MED ONE Stop: 01/25/19 12:07 Sodium Bicarbonate (Sodium Bicarbonate 4.2%) Confirm Administered Dose 0.5 meq .ROUTE .STK-MED ONE Stop: 01/22/19 20:36 Last Admin: 01/22/19 23:13 Dose: Not Given Sodium Bicarbonate (Sodium Bicarbonate 4.2%) Confirm Administered Dose 0.5 meq .ROUTE .STK-MED ONE Stop: 01/23/19 00:30 Last Admin: 01/23/19 01:25 Dose: Not Given Sodium Bicarbonate (Sodium Bicarbonate 4.2%) 0.5 meq IV .STK-MED ONE Stop: 01/25/19 12:07 Sodium Bicarbonate (Sodium Bicarbonate 4.2%) 0.5 meq .XX .STK-MED ONE Stop: 01/25/19 12:19 Sufentanil Citrate (Sufenta) Confirm Administered Dose 50 mcg .ROUTE .STK-MED ONE Stop: 01/22/19 20:36 Last Admin: 01/22/19 23:13 Dose: Not Given Sufentanil Citrate (Sufenta) Confirm Administered Dose 50 mcg .ROUTE .STK-MED ONE Stop: 01/23/19 00:30 Last Admin: 01/23/19 01:25 Dose: Not Given Sufentanil Citrate (Sufenta) 20 mcg ITHECAL .STK-MED ONE Stop: 01/25/19 12:18 <Josselin Wells - Last Filed: 01/26/19 10:44> Discharge Summary - Patient Summary/Data Consults: Consultations 01/23/19 13:13 Consult to Machine Tailer [CONS] Routine - Discharge Summary/Plan Comment Discharge Summary/Plan Comment: Agree with resident assessment and plan. Prescription for #30 [facility]ocet [facility] [employer]. Follow-up in 6-8 weeks for visit. Josselin Wells MD - Patient Data Vitals - Most Recent: Last Vital Signs Temp 37.0 C 01/26/19 08:00 Pulse 87 01/26/19 08:00 Resp 16 01/26/19 08:00 BP 128/85 01/26/19 08:00 Pulse Ox 100 01/26/19 08:00 Med Orders - Current: Current Medications Acetaminophen (Tylenol) 650 mg PO Q4H PRN PRN Reason: Pain (Mild 1-3) and fever Carboprost Tromethamine (Hemabate Ds) 250 mcg IM ASDIRECTED PRN PRN Reason: HEMORRHAGE Diphenhydramine HCl (Benadryl) 25 mg IVPUSH Q6H PRN PRN Reason: Itching or Nausea Docusate Sodium (Colace) 100 mg PO Q12H PRN PRN Reason: Constipation Last Admin: 01/26/19 09:05 Dose: 100 mg Ferrous Sulfate (Ferrous Sulfate) 325 mg PO DAILY [facility] Last Admin: 01/26/19 08:56 Dose: 325 mg Oxytocin/Sodium Chloride (Pitocin In Ns 30 Unit/500 Ml) 30 unit in 500 mls @ 2 mls/hr IV TITRATE [facility]; Protocol Last Titration: 01/23/19 03:02 Dose: 0 mls/hr Oxytocin/Sodium Chloride (Pitocin In Ns 30 Unit/500 Ml) 30 unit in 500 mls @ 2 mls/hr IV TITRATE [facility]; Protocol Last Titration: 01/23/19 08:30 Dose: 0 mls/hr Tranexamic Acid 1,000 mg/ (Sodium Chloride) 110 mls @ 660 mls/hr IV ONETIME PRN PRN Reason: Bleeding Lactated Ringer's (Ringers, Lactated) 1,000 mls @ 125 mls/hr IV ASDIRECTED [facility] Last Admin: 01/23/19 08:30 Dose: 125 mls/hr Ibuprofen (Motrin) 800 mg PO Q8H PRN PRN Reason: mild pain or fever Last Admin: 01/26/19 04:27 Dose: 800 mg Lidocaine HCl (Xylocaine-Mpf 1%) 30 ml INJECT ASDIRECTED PRN PRN Reason: Perineal Repair Methylergonovine Maleate (Methergine) 0.2 mg IM ASDIRECTED PRN PRN Reason: Hemorrhage Misoprostol (Cytotec) 800 mcg RECTAL ASDIRECTED PRN PRN Reason: Excessive bleeding Naloxone HCl (Narcan) 0.1 mg IVPUSH SEECOMMENT PRN PRN Reason: Respiratory Depression Ondansetron HCl (Zofran) 4 mg IV Q4H PRN PRN Reason: Nausea/Vomiting Oxycodone/Acetaminophen (Percocet 325-5 Mg) 1 tab PO Q4H PRN PRN Reason: Pain (moderate 4-6) Last Admin: 01/24/19 05:35 Dose: 1 tab Oxycodone/Acetaminophen (Percocet 325-5 Mg) 2 tab PO Q4H PRN PRN Reason: Pain (moderate 4-6) Last Admin: 01/26/19 08:59 Dose: 2 tab Prenat Multivit/Sioux/Iron/Folic Ac ( Plus Iron) 1 each PO DAILY [facility] Last Admin: 01/26/19 08:56 Dose: 1 each Simethicone (Simethicone) 160 mg PO QID [facility] Last Admin: 01/26/19 08:56 Dose: 160 mg Sodium Chloride (Saline Flush) 10 ml FLUSH ASDIRECTED PRN PRN Reason: Keep Vein Open Last Admin: 01/22/19 20:35 Dose: 10 ml Discontinued Medications Carboprost Tromethamine (Hemabate Ds) 250 mcg IM ONETIME ONE Stop: 01/23/19 05:08 Last Admin: 01/23/19 09:07 Dose: Not Given Citric Acid/Sodium Citrate (Bicitra Solution) 30 ml PO ONETIME ONE Stop: 01/23/19 03:21 Last Admin: 01/23/19 03:41 Dose: 30 ml Dexamethasone (Dexamethasone) 8 mg IV .STK-MED ONE Stop: 01/25/19 12:07 Ephedrine Sulfate (Ephedrine Sulfate) 20 mg IV .STK-MED ONE Stop: 01/25/19 12:07 Epinephrine HCl (Adrenalin) Confirm Administered Dose 1 mg .ROUTE .STK-MED ONE Stop: 01/22/19 20:36 Last Admin: 01/22/19 23:13 Dose: Not Given Epinephrine HCl (Adrenalin) Confirm Administered Dose 1 mg .ROUTE .STK-MED ONE Stop: 01/23/19 00:29 Last Admin: 01/23/19 01:25 Dose: Not Given Epinephrine HCl (Adrenalin) 0.1 mg .XX .STK-MED ONE Stop: 01/25/19 12:19 Fentanyl (Sublimaze) Confirm Administered Dose 100 mcg .ROUTE .STK-MED ONE Stop: 01/22/19 20:35 Last Admin: 01/22/19 23:12 Dose: Not Given Fentanyl (Sublimaze) Confirm Administered Dose 100 mcg .ROUTE .STK-MED ONE Stop: 01/23/19 00:29 Last Admin: 01/23/19 01:25 Dose: Not Given Fentanyl (Sublimaze) 30 mcg ITHECAL .STK-MED ONE Stop: 01/25/19 12:18 Lactated Ringer's (Ringers, Lactated) 500 mls @ 999 mls/hr IV .BOLUS ONE Stop: 01/22/19 20:26 Last Admin: 01/23/19 09:06 Dose: Not Given Lactated Ringer's (Ringers, Lactated) 1,000 mls @ 125 mls/hr IV ASDIRECTED [facility] Last Admin: 01/23/19 01:15 Dose: 125 mls/hr Tranexamic Acid 1,000 mg/ (Sodium Chloride) 110 mls @ 660 mls/hr IV ONETIME PRN PRN Reason: Bleeding Oxytocin/Sodium Chloride (Pitocin In Ns 30 Unit/500 Ml) 30 unit in 500 mls @ 1 mls/hr IV TITRATE [facility]; Protocol Oxytocin/Sodium Chloride (Pitocin In Ns 30 Unit/500 Ml) 30 unit in 500 mls @ 1 mls/hr IV TITRATE [facility]; Protocol Cefazolin Sodium/Dextrose 2 gm (/ Premix) 50 mls @ 100 mls/hr IV ONETIME ONE Stop: 01/23/19 03:49 Last Admin: 01/23/19 03:55 Dose: 100 mls/hr Oxytocin/Sodium Chloride (Pitocin In Ns 30 Unit/500 Ml) Confirm Administered Dose 60 unit in 1,000 mls @ as directed .ROUTE .STK-MED ONE Stop: 01/23/19 03:30 Sodium Chloride (Normal Saline) Confirm Administered Dose 50 mls @ as directed .ROUTE .STK-MED ONE Stop: 01/23/19 04:32 Oxytocin/Sodium Chloride (Pitocin In Ns 30 Unit/500 Ml) 30 unit in 500 mls @ as directed IV .STK-MED ONE Stop: 01/24/19 12:09 Lactated Ringer's (Ringers, Lactated) 1,000 mls @ as directed IV .STK-MED ONE Stop: 01/25/19 12:07 Ketorolac Tromethamine (Toradol) 15 mg IVPUSH Q6H [facility] Stop: 01/23/19 23:01 Last Admin: 01/23/19 23:15 Dose: 15 mg Ketorolac Tromethamine (Toradol) 30 mg IVPUSH .STK-MED ONE Stop: 01/25/19 12:07 Misoprostol (Cytotec) 800 mcg RECTAL ASDIRECTED PRN PRN Reason: Hemorrhage Morphine Sulfate (Duramorph Pf) 0.2 mg .XX .STK-MED ONE Stop: 01/25/19 12:07 Ondansetron HCl (Zofran) 4 mg IV Q4H PRN PRN Reason: Nausea/Vomiting Last Admin: 01/23/19 00:20 Dose: 4 mg Promethazine HCl (Phenergan) 12.5 mg .XX .STK-MED ONE Stop: 01/25/19 12:07 Sodium Bicarbonate (Sodium Bicarbonate 4.2%) Confirm Administered Dose 0.5 meq .ROUTE .STK-MED ONE Stop: 01/22/19 20:36 Last Admin: 01/22/19 23:13 Dose: Not Given Sodium Bicarbonate (Sodium Bicarbonate 4.2%) Confirm Administered Dose 0.5 meq .ROUTE .STK-MED ONE Stop: 01/23/19 00:30 Last Admin: 01/23/19 01:25 Dose: Not Given Sodium Bicarbonate (Sodium Bicarbonate 4.2%) 0.5 meq IV .STK-MED ONE Stop: 01/25/19 12:07 Sodium Bicarbonate (Sodium Bicarbonate 4.2%) 0.5 meq .XX .STK-MED ONE Stop: 01/25/19 12:19 Sufentanil Citrate (Sufenta) Confirm Administered Dose 50 mcg .ROUTE .STK-MED ONE Stop: 01/22/19 20:36 Last Admin: 01/22/19 23:13 Dose: Not Given Sufentanil Citrate (Sufenta) Confirm Administered Dose 50 mcg .ROUTE .STK-MED ONE Stop: 01/23/19 00:30 Last Admin: 01/23/19 01:25 Dose: Not Given Sufentanil Citrate (Sufenta) 20 mcg ITHECAL .STK-MED ONE Stop: 01/25/19 12:18
[2019-01-26] MEDS: Prenatal Multivitamin with Calcium/Folic Acid/Iron Tab PO SCH (08:56)
[2019-01-26] MEDS: Simethicone 80 MG Tab.Chew PO SCH (08:56)
[2019-01-26] MEDS: Ferrous Sulfate 325 MG Tab PO SCH (08:56)
[2019-01-26] MEDS: Docusate Sodium 100 MG Cap PO PRN (09:05)
== END 2019-01-26 10:55 | disposition home or self-care (01) | DRG 787 ==
LOC: DL.OBCHECK 19:51 → DL.OB 19:56 → OBSVTOIN 01-23 04:17
PROVIDERS: ADMIT Family Medicine; ATTEND Family Medicine
PROC: 10D00Z1 Extraction of Products of Conception, Low, Open Approach (ICD-10-PCS; principal; 2019-01-23)
PROC: 3E0R3BZ Introduction of Anesthetic Agent into Spinal Canal, Percutaneous Approach (ICD-10-PCS; 2019-01-23)
DX: O62.1 Secondary uterine inertia (principal); O72.1 Other immediate postpartum hemorrhage; D62 Acute posthemorrhagic anemia; O48.0 Post-term pregnancy; O14.94 Unspecified pre-eclampsia, complicating childbirth; O76 Abnormality in fetal heart rate and rhythm complicating labor and delivery; O63.0 Prolonged first stage (of labor); O90.81 Anemia of the puerperium; O77.0 Labor and delivery complicated by meconium in amniotic fluid; Z3A.40 40 weeks gestation of pregnancy; Z37.0 Single live birth; Z88.0 Allergy status to penicillin
CPT/HCPCS: 36415; 51701; 51702; 81003; 82565; 82570; 83615; 83986; 84156; 84450; 84460; 84520; 84550; 85018; 85027; 86850; 86900; 86901; A9270-GY; J0171; J0690; J1100; J1885; J2274; J2405; J2550; J2590; J3010; J7050; J7120